=== PATIENT | male | born 1985 | race Caucasian/White ===

== ENCOUNTER → 2016-05-15 | Outpatient (CLI) | payer OTHER ==
[~2016-05-15] MED LIST: ATR10 PO; CETI10TA84 PO; CLON1TAB3 PO; FLUT0.15 NAE; HYDR-5688 PO; METO25TA3 PO; MISCCAP80 PO; MULT1CAP17 PO; NZRCR TOP; ONDA4TAB10 SL; PARO10TA3 PO
--- NOTE | 2016-05-15 17:20 | DIAGNOSTIC IMAGING REPORT ---
ULTRASOUND RIGHT VENOUS DOPP LOWER EXT UNILAT CLINICAL HISTORY: Right leg pain and swelling COMPARISON STUDY: No previous studies for comparison. FINDINGS: Real-time and color flow Doppler imaging were performed. Flow was seen within the femoral, popliteal and calf veins with no intraluminal thrombus demonstrated. The saphenous vein is patent. IMPRESSION: No evidence of right lower extremity DVT. Electronically signed by: Herman Cain M.D. 05/15/2016 5:19 PM Dictated Date/Time: 05/15/2016 5:18 PM
== END | disposition home or self-care (01) ==
LOC: C.ULTR 16:57
PROVIDERS: ATTEND Family Medicine
DX: J06.9 Acute upper respiratory infection, unspecified (principal); M79.604 Pain in right leg

== ENCOUNTER → 2016-05-23 | Outpatient (CLI) | payer OTHER ==
--- NOTE | 2016-05-23 14:04 | DIAGNOSTIC IMAGING REPORT ---
THYROID ULTRASONOGRAPHY CLINICAL HISTORY: Thyroid nodule COMPARISON STUDY: No previous studies for comparison. FINDINGS: The right lobe measures 19 x 59 x 26 mm. The left lobe measures 16 x 47 x 18 mm. There is a 22 x 21 x 17 mm right lobe nodule which is predominantly cystic but contains a mural nodule. Incidental note is made of several lymph nodes within the left neck, the largest of which measures 21 by size 7 x 7 mm. These are statistically reactive. IMPRESSION: 22 x 21 x 17 mm right lobe thyroid nodule which is predominantly cystic but contains a mural nodule. This meets size and morphologic characteristics for biopsy recommendation. Electronically signed by: Herman Cain M.D. 05/23/2016 2:02 PM Dictated Date/Time: 05/23/2016 1:59 PM
== END | disposition home or self-care (01) ==
LOC: C.ULTR 13:08
PROVIDERS: ATTEND Family Medicine
DX: E04.1 Nontoxic single thyroid nodule (principal); F41.9 Anxiety disorder, unspecified

== ENCOUNTER → 2016-05-30 | Outpatient (CLI) | payer OTHER ==
--- NOTE | 2016-05-30 11:48 | Discharge Instructions ---
Discharge Instructions Procedure Procedure Date: May 30, 2016. Reason for visit: Ct Showing Thyroid Nodule. Discharge Discharge Date: May 30, 2016. Discharge Diagnosis: s/p right lobe thyroid nodule FNA Instructions Activity Recommendations: No limitations Return to School/Work: no limitations Recommended Home Diet: No Limitations Provider Instructions: ACTIVITY RECOMMENDATIONS: * Rest today. * Resume regular activity in one day. MEDICATIONS: * May take Tylenol or Ibuprofen as needed for pain. DIET: * Resume previous diet. SPECIAL CARE INSTRUCTIONS: Call your doctor if: * Temperature above 101 degrees F. * Pain not relieved by pain medicine ordered. * Increased drainage or redness from incision. * Notify your doctor with any questions or concerns. Call your doctor or go to the nearest Emergency Department if you experience: * Increased chest pain or shortness of breath. FOLLOW UP VISIT: Follow-up with Referring Physician as scheduled. Allergies Coded Allergies: Chlorpheniramine (Unverified Allergy, Severe, anxiety, 04/09/16) Phenylpropanolamine (Unverified Allergy, Severe, anxiety, 04/09/16) Acarides (Mites) (Verified Allergy, Intermediate, "congestion", 04/09/16) Cat Dander (Verified Allergy, Intermediate, "congestion", 04/09/16) Dog Dander (Verified Allergy, Intermediate, "congestion", 04/09/16) Dust (Verified Allergy, Intermediate, "congestion", 04/09/16) Horse Dander (Verified Allergy, Intermediate, "congestion", 04/09/16) Sulfa Antibiotics (Verified Allergy, Unknown, HIVES, 04/09/16) [place] Recommendations: Call your doctor if: * Temperature above 101 degrees * Pain not relieved by pain medicine ordered * There is increased drainage or redness from any incision * You have any unanswered questions or concerns. Your Doctors Instructions noted above were prepared by provider Lakhwinder Herron. Patient Signature Section: Patient Instructions Signature Page Parveen Jackson Patient (or Guardian) Signature/Date: I have read and understand the instructions given to me by my caregivers. Caregiver/RN/Doctor Signature/Date: The above-named patient and/or guardian has received patient instructions on this date. + Original Patient Signature Page (only) stays with chart. Please make copy for patient.
--- NOTE | 2016-05-30 12:14 | DIAGNOSTIC IMAGING REPORT ---
ULTRASOUND GUIDED FINE NEEDLE ASPIRATION OF RIGHT LOBE THYROID NODULE CLINICAL HISTORY: Thyroid nodule. COMPARISON STUDY: Thyroid ultrasound May 23, 2016. PROCEDURE: Sonography of the thyroid gland demonstrated the 2.2 cm right lobe thyroid nodule. This nodule is predominantly cystic with a small mural nodule. This was targeted for fine needle aspiration. The procedure, risks and benefits were discussed with the patient. The patient agreed to the procedure and informed written consent was obtained. The procedure was performed by Dr. Herron following a timeout. Skin of the right neck was prepped and draped in sterile fashion and local anesthesia was achieved with 1% lidocaine. Under direct ultrasound guidance, 3 25-gauge fine needle aspirations of the nodule were performed. The mural nodule was targeted. The patient tolerated the procedure well and no immediate complications were evident. IMPRESSION: Ultrasound guided fine needle aspiration of right lobe thyroid nodule. Electronically signed by: Lakhwinder Herron M.D. 05/30/2016 12:12 PM Dictated Date/Time: 05/30/2016 12:11 PM
== END | disposition home or self-care (01) ==
LOC: C.ULTR 10:35
PROVIDERS: ATTEND Family Medicine
DX: E04.1 Nontoxic single thyroid nodule (principal)

== ENCOUNTER 2016-06-15 11:21 | Emergency (ER) | payer OTHER ==
[~2016-06-15] VITALS: Ht 167.6 cm; Wt 79.3 kg
[~2016-06-15 11:21] MED LIST changes: -ATR10 PO; -HYDR-5688 PO; -METO25TA3 PO; -MULT1CAP17 PO; -NZRCR TOP
[2016-06-15 11:24] VITALS: TEMP 36.5; Ht 167.6 cm; Wt 79.3 kg
[2016-06-15] MEDS ORDERED: MULT1CAP17 PO (11:52)
[2016-06-15] MEDS ORDERED: NZRCR TOP (11:52)
[2016-06-15] MEDS ORDERED: KETOROLAC TROMETHAMINE 30 MG/ML VIAL IV STA (12:00)
[2016-06-15] MEDS ORDERED: SODIUM CHLORIDE 0.9% 1000ML 1,000 ML IV STA (12:00)
[2016-06-15] MEDS ORDERED: ONDANSETRON INJ 2 MG/ML 2 ML VIAL IV STA (12:00)
--- NOTE | 2016-06-15 12:01 | EMERGENCY ROOM VISIT NOTE ---
History Report prepared by Marcelo: Ludivina Gomez Under the Supervision of: Dr. London Batista M.D. First contact with patient: 11:38 Chief Complaint: ABDOMINAL PAIN Stated Complaint: ABD. BLOATING, GURGLING, WON'T STOP History of Present Illness The patient is a 31 year old male who presents to the Emergency Room with complaints of intermittent pelvic and lower abdominal pain for the past few days. He is accompanied by his Father. He rates his discomfort as a 3/10. He reports approximately 12 days ago, he experienced URI type symptoms and was placed on Amoxicillin. He just finished the Amoxicillin course and also notes he has been using a cream on a fungal type rash on his buttocks. He was taking probiotic pills while taking the Amoxicillin. He reports a few days ago he started experiencing abdominal bloating and a feeling of "constant gurgling" in his stomach, which did not stop for "30 hours". The patient admits to a history of IBS, for which he follows with Dr. Peralta of [facility]. He still has both his appendix and gallbladder. He has also experienced night sweats and states he wakes up "soaking with sweat". The patient does have a history of panic disorder and reports some of his psychiatric medications have been readjusted recently. He also stopped smoking marijuana, which he states he had been doing habitually until recently. Source of History: patient Onset: past few days Position: abdomen Symptom Intensity: 3/10 Timing: intermittent Associated Symptoms: + diaphoresis Review of Systems See HPI for pertinent positives & negatives. A total of 10 systems reviewed and were otherwise negative. Past Medical & Surgical Medical Problems: (1) Acute sinusitis (2) Anxiety (3) Neck pain (4) Panic disorder (5) Seasonal allergies Family History Cancer FH: heart disease FH: pulmonary embolism Social History Smoking Status: Never Smoker Alcohol Use: occasionally Marital Status: single Housing Status: lives with family Occupation Status: employed Current/Historical Medications Scheduled Ketoconazole (Ketoconazole), 1 DOSE TOP BID Multiple Vitamins W/ Minerals (Multi For Him), 1 CAP PO DAILY Ondasetron Odt (Zofran Odt), 4 MG SL Q6H Paroxetine HCl (Paroxetine), 10 MG PO HS Probiotic Product (Probiotic), 1 CAP PO QPM Scheduled PRN Clonazepam (Klonopin), 0.5 MG PO BID PRN for Anxiety Fluticasone Propionate (Nasal) (Flonase Allergy Relief), 1 INHALER NA DAILY PRN for Nasal Congestion Allergies Coded Allergies: Chlorpheniramine (Unverified Allergy, Severe, anxiety, 06/15/16) Phenylpropanolamine (Unverified Allergy, Severe, anxiety, 06/15/16) Acarides (Mites) (Verified Allergy, Intermediate, "congestion", 06/15/16) Cat Dander (Verified Allergy, Intermediate, "congestion", 06/15/16) Dog Dander (Verified Allergy, Intermediate, "congestion", 06/15/16) Dust (Verified Allergy, Intermediate, "congestion", 06/15/16) Horse Dander (Verified Allergy, Intermediate, "congestion", 06/15/16) Sulfa Antibiotics (Verified Allergy, Unknown, HIVES, 06/15/16) Physical Exam Vital Signs Date Time Temp Pulse Resp B/P Pulse Ox O2 Delivery O2 Flow Rate FiO2 06/15/16 13:55 112 18 133/93 98 06/15/16 13:10 81 18 145/88 97 Room Air 06/15/16 11:24 36.5 104 18 145/95 94 Room Air Physical Exam GENERAL: Patient is a healthy-appearing well-nourished HEAD: Normocephalic atraumatic EYES: Ocular movements intact pupils equal and react to light OROPHARYNX mucous membranes are moist no exudates present no erythema or edema present NECK: Supple no nuchal rigidity CHEST: Good equal expansion LUNGS: Clear and equal to auscultation CARDIAC: Normal S1 and S2 ABDOMEN: Soft nontender no guarding BACK: No CVA tenderness EXTREMITIES: No pain upon palpation normal muscle strength in all groups no clubbing cyanosis or edema NEURO: Patient is following commands is answering questions appropriately. Alert and oriented x3 Cranial Nerves 2-12 grossly intact Medical Decision & Procedures ER Provider Diagnostic Interpretation: This X-Ray was reviewed and interpreted by myself and the radiologist. PA CHEST WITH ABDOMINAL SERIES IMPRESSION: 1. No active disease in the chest. 2. Unremarkable abdominal radiographs. Electronically signed by: Tony Mireles M.D. 06/15/2016 1:09 PM Laboratory Results 06/15/16 11:40 Red Blood Count 5.15, Mean Corpuscular Volume 85.0, Mean Corpuscular Hemoglobin 30.9, Mean Corpuscular Hemoglobin Concent 36.3, Mean Platelet Volume 10.1, Neutrophils (%) (Auto) 53.2, Lymphocytes (%) (Auto) 36.3, Monocytes (%) (Auto) 7.4, Eosinophils (%) (Auto) 2.7, Basophils (%) (Auto) 0.3, Neutrophils # (Auto) 3.95, Lymphocytes # (Auto) 2.70, Monocytes # (Auto) 0.55, Eosinophils # (Auto) 0.20, Basophils # (Auto) 0.02 06/15/16 11:40 Test 06/15/16 11:40 06/15/16 12:20 White Blood Count 7.43 K/uL (4.8-10.8) Red Blood Count 5.15 M/uL (4.7-6.1) Hemoglobin 15.9 g/dL (14.0-18.0) Hematocrit 43.8 % (42-52) Mean Corpuscular Volume 85.0 fL (80-100) Mean Corpuscular Hemoglobin 30.9 pg (25-34) Mean Corpuscular Hemoglobin Concent 36.3 g/dl (32-36) Platelet Count 257 K/uL (130-400) Mean Platelet Volume 10.1 fL (7.4-10.4) Neutrophils (%) (Auto) 53.2 % Lymphocytes (%) (Auto) 36.3 % Monocytes (%) (Auto) 7.4 % Eosinophils (%) (Auto) 2.7 % Basophils (%) (Auto) 0.3 % Neutrophils # (Auto) 3.95 K/uL (1.4-6.5) Lymphocytes # (Auto) 2.70 K/uL (1.2-3.4) Monocytes # (Auto) 0.55 K/uL (0.11-0.59) Eosinophils # (Auto) 0.20 K/uL (0-0.5) Basophils # (Auto) 0.02 K/uL (0-0.2) RDW Standard Deviation 40.5 fL (36.4-46.3) RDW Coefficient of Variation 13.0 % (11.5-14.5) Immature Granulocyte % (Auto) 0.1 % Immature Granulocyte # (Auto) 0.01 K/uL (0.00-0.02) Anion Gap 8.0 mmol/L (3-11) Est Creatinine Clear Calc Drug Dose 107.9 ml/min Estimated GFR () 117.4 Estimated GFR (Non- 101.3 BUN/Creatinine Ratio 11.2 (10-20) Calcium Level 9.0 mg/dl (8.5-10.1) Total Bilirubin 0.6 mg/dl (0.2-1) Direct Bilirubin 0.1 mg/dl (0-0.2) Aspartate Amino Transf (AST/SGOT) 16 U/L (15-37) Alanine Aminotransferase (ALT/SGPT) 22 U/L (12-78) Alkaline Phosphatase 81 U/L (45-117) Total Protein 8.0 gm/dl (6.4-8.2) Albumin 4.6 gm/dl (3.4-5.0) Lipase 134 U/L (73-393) Urine Color YELLOW Urine Appearance CLEAR (CLEAR) Urine pH 6.0 (4.5-7.5) Urine Specific [place] 1.009 (1.000-1.030) Urine Protein NEG (NEG) Urine Glucose (UA) NEG (NEG) Urine Ketones NEG (NEG) Urine Occult Blood NEG (NEG) Urine Nitrite NEG (NEG) Urine Bilirubin NEG (NEG) Urine Urobilinogen NEG (NEG) Urine Leukocyte Esterase NEG (NEG) Date/Time Source Procedure Growth Status 06/15/16 12:20 Stool C.difficile Toxin B Gene (PCR) - Final Complete Labs reviewed by ED physician. Medications Administered Medications (Trade) Dose Ordered Sig/Alejandra Route Start Time Stop Time Status Last Admin Dose Admin Ondansetron HCl 4 mg 4 mg NOW STAT IV 06/15/16 12:00 06/15/16 12:04 DC 06/15/16 12:16 4 MG Sodium Chloride (Nss 1000ml) 1,000 ml @ 999 mls/hr Q1H1M STAT IV 06/15/16 12:00 06/15/16 13:00 DC 06/15/16 12:16 999 MLS/HR ED Course 1152: Past medical records reviewed. The patient was evaluated in room B3. A complete history and physical examination was performed. 1200: NSS 1000 ml @ 999 mls/hr IV, Zofran 4 mg IV. 1311: Nursing informed me the patient is experiencing RUQ abdominal pain. 1335: I reevaluated the patient. He is feeling better but states he is concerned about his blood pressure. I discussed his results, discharge instructions and the importance of following up with his primary care physician and he verbalized complete understanding and agreement. Medical Decision Prior records/ancillary studies reviewed. Triage Nursing notes reviewed.. The patient's history was concerning for abdominal pain. Differential diagnosis: Etiologies such as appendicitis, diverticulitis, PUD, biliary pathology, UTI, pancreatitis, obstruction, mesenteric ischemia, aortic pathology, infections, inflammatory bowel disease, renal colic, as well as others were entertained. This is a 31-year-old male who presents emergency Department with vague abdominal complaints. The patient appears anxious on examination. Serial abdominal examinations were performed on the patient in the emergency department no time did the patient exhibited a surgical abdomen. In addition the patient has a normal lipase, normal CBC normal renal profile. He does have a large amount of stool throughout his colon on x-ray. An IV was established, patient given normal saline bolus, Zofran. Repeat examination revealed improvement the patient's symptoms. I do believe this patient is well enough to be discharged home for follow-up with his primary care physician. Patient and family were in agreement with the treatment plan. Impression Primary Impression: Abdominal pain Scribe Attestation The scribe's documentation has been prepared under my direction and personally reviewed by me in its entirety. I confirm that the note above accurately reflects all work, treatment, procedures, and medical decision making performed by me. Departure Information Dispostion Home / Self-Care Referrals Rosales Martini M.D. (PCP) Patient Instructions ED Abd Pain Unkn Cause Male, ED Hypertension Poss, My [facility] Additional Instructions Add 10 oz to 16 oz Gatorade and drink contiunuously over next 48 hours You have been examined and treated today on an emergency basis only. This is not a substitute for, or an effort to provide, complete comprehensive medical care. It is impossible to recognize and treat all injuries or illnesses in a single emergency department visit. It is therefore important that you follow up closely with Dr Martini. Call as soon as possible for an appointment. Thank you for your time and consideration. I look forward to speaking with you again soon. Please don't hesitate to call us if you have any questions. Problem Qualifiers Primary Impression: Abdominal pain Abdominal location: generalized Qualified Codes: R10.84 - Generalized abdominal pain
[2016-06-15 12:10] LABS: BASO % 0.3 %; BASO ABS # 0.02 K/uL (0-0.2); COMPLETE YES; EOS % 2.7 %; HEMATOCRIT 43.8 % (42-52); IG% 0.1 %; LYMPH % 36.3 %; MEAN CORPUSCULAR HEMOGLOBIN 30.9 pg (25-34); MEAN CORPUSCULAR HGB CONC 36.3 g/dl (32-36); MEAN PLATELET VOLUME 10.1 fL (7.4-10.4); MONO % 7.4 %; NEUT % 53.2 %; PLATELET COUNT 257 K/uL (130-400); RED BLOOD COUNT 5.15 M/uL (4.7-6.1); WHITE BLOOD COUNT 7.43 K/uL (4.8-10.8)
[2016-06-15 12:22] LABS: BUN/CREATININE RATIO 11.2 (10-20); POTASSIUM 3.9 mmol/L (3.5-5.1)
[2016-06-15 12:32] LABS: URINE APPEARANCE CLEAR (CLEAR); URINE BILIRUBIN NEG (NEG); URINE COLOR YELLOW; URINE NITRITE NEG (NEG); URINE SPECIFIC GRAVITY 1.009 (1.000-1.030); UROBILINOGEN NEG (NEG)
[2016-06-15 12:33] LABS: MANUAL MICROSCOPIC REQUIRED? NO; REVIEW REQ? NO
--- NOTE | 2016-06-15 13:11 | DIAGNOSTIC IMAGING REPORT ---
PA CHEST WITH ABDOMINAL SERIES CLINICAL HISTORY: Generalized abdominal pain. FINDINGS: A PA chest radiograph is compared to chest x-ray and chest CT dated 01/25/2016. The cardiomediastinal silhouette is unremarkable. The lungs and pleural spaces are clear. No pneumothorax is seen. The bony thorax is grossly intact. Supine and erect abdominal radiograph are correlated with abdominal CT dated 04/09/2016. There is a nonobstructed abdominal bowel gas pattern. Mild colonic fecal retention is noted. No evidence of intraperitoneal free air is seen. There is no radiographic evidence of nephrolithiasis. Large phleboliths in the left hemipelvis are unchanged. The lumbosacral spine and bony pelvis appear intact. IMPRESSION: 1. No active disease in the chest. 2. Unremarkable abdominal radiographs. Electronically signed by: Tony Mireles M.D. 06/15/2016 1:09 PM Dictated Date/Time: 06/15/2016 1:07 PM
[2016-06-15 13:55] VITALS: BP 133/93; PULSE 112; O2SAT 98
[2016-11-08] MEDS ORDERED: HYDR-5688 PO (07:02)
== END 2016-06-15 13:56 | disposition home or self-care (01) ==
LOC: C.EDB 11:22
DX: R10.84 Generalized abdominal pain (principal); K58.9 Irritable bowel syndrome, unspecified; R61 Generalized hyperhidrosis; F41.0 Panic disorder [episodic paroxysmal anxiety]; Z79.899 Other long term (current) drug therapy; Z88.1 Allergy status to other antibiotic agents; Z88.2 Allergy status to sulfonamides; Z88.8 Allergy status to other drugs, medicaments and biological substances; Z82.49 Family history of ischemic heart disease and other diseases of the circulatory system

== ENCOUNTER 2016-07-08 14:52 | Emergency (ER) | payer OTHER ==
[~2016-07-08] VITALS: Ht 172.7 cm; Wt 84.7 kg
[~2016-07-08 14:52] MED LIST changes: -CETI10TA84 PO; +MULT1CAP17 PO; +NZRCR TOP
[2016-07-08 14:57] VITALS: TEMP 37; Ht 172.7 cm; Wt 84.7 kg
[2016-07-08] MEDS ORDERED: SODIUM CHLORIDE 0.9% 1000ML 2,000 ML IV STA (15:03)
[2016-07-08 15:17] LABS: HEMATOCRIT 42.6 % (42-52); MEAN CELL VOLUME 84.5 fL (80-100); MEAN CORPUSCULAR HEMOGLOBIN 30.6 pg (25-34); MEAN CORPUSCULAR HGB CONC 36.2 g/dl (32-36); MEAN PLATELET VOLUME 10.2 fL (7.4-10.4); PLATELET COUNT 241 K/uL (130-400); RED BLOOD COUNT 5.04 M/uL (4.7-6.1); WHITE BLOOD COUNT 8.06 K/uL (4.8-10.8)
--- NOTE | 2016-07-08 15:26 | DIAGNOSTIC IMAGING REPORT ---
CHEST ONE VIEW PORTABLE CLINICAL HISTORY: Shortness of breath COMPARISON STUDY: 06/15/2016 FINDINGS: The cardiac and mediastinal contours are normal. There is no evidence of focal pulmonary consolidation. There is no evidence of failure. No pleural effusions are visualized.[ IMPRESSION: No active disease in the chest. Electronically signed by: Herman Cain M.D. 07/08/2016 3:24 PM Dictated Date/Time: 07/08/2016 3:24 PM
[2016-07-08 15:40] LABS: BLOOD UREA NITROGEN 16 mg/dl (7-18); BUN/CREATININE RATIO 13.2 (10-20); CALCIUM 9.8 mg/dl (8.5-10.1); CARBON DIOXIDE 21 mmol/L (21-32); CHLORIDE 104 mmol/L (98-107); GLUCOSE 149 mg/dl (70-99); POTASSIUM 3.4 mmol/L (3.5-5.1); SODIUM 138 mmol/L (136-145)
--- NOTE | 2016-07-08 15:47 | EMERGENCY ROOM VISIT NOTE ---
History Report prepared by Marcelo: Rashmi Cramer Under the Supervision of: Dr. Pelon Roca M.D. 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 He came to the ED via ambulance from home. He was given 1 mg of Ativan IV by EMS prior to arrival. EMS reports that the patient was tachypneic upon their arrival. The patient states that his daughter was born yesterday, but he has been in the hospital all weekend. He states that due to the anticipation of his daughter's along with starting a new job, he has been more anxious than usual for the past 3 days. The patient started his new job today. He adds that he hasn't slept much over the past 2 days either, so he is fatigued. The patient is also experiencing rhinorrhea and post-nasal drip, but he states that he usually experiences those symptoms with seasonal allergies. Additionally, he states that he experienced diarrhea this morning. He denies cough and any urinary symptoms. The patient states that the only medication that he takes daily is 0.5 mg of Klonopin, which is normal for him. 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 A total of 10 systems reviewed and were otherwise negative. Past Medical & Surgical Medical Problems: (1) Acute sinusitis (2) Anxiety (3) Neck pain (4) Panic disorder (5) Seasonal allergies Family History Cancer FH: heart disease FH: pulmonary embolism Social History Smoking Status: Never Smoker Alcohol Use: occasionally Marital Status: single Housing Status: lives with family Occupation Status: employed Current/Historical Medications Scheduled Multiple Vitamins W/ Minerals (Multi For Him), 1 CAP PO DAILY Paroxetine HCl (Paroxetine), 10 MG PO HS Probiotic Product (Probiotic), 1 CAP PO QPM Scheduled PRN Clonazepam (Klonopin), 0.5 MG PO BID PRN for Anxiety Fluticasone Propionate (Nasal) (Flonase Allergy Relief), 1 INHALER NA DAILY PRN for Nasal Congestion Ondasetron Odt (Zofran Odt), 4 MG SL Q6H PRN for Nausea Allergies Coded Allergies: Chlorpheniramine (Unverified Allergy, Severe, anxiety, 07/08/16) Phenylpropanolamine (Unverified Allergy, Severe, anxiety, 07/08/16) Acarides (Mites) (Verified Allergy, Intermediate, "congestion", 07/08/16) Cat Dander (Verified Allergy, Intermediate, "congestion", 07/08/16) Dog Dander (Verified Allergy, Intermediate, "congestion", 07/08/16) Dust (Verified Allergy, Intermediate, "congestion", 07/08/16) Horse Dander (Verified Allergy, Intermediate, "congestion", 07/08/16) Sulfa Antibiotics (Verified Allergy, Unknown, HIVES, 07/08/16) Physical Exam Vital Signs Date Time Temp Pulse Resp B/P Pulse Ox O2 Delivery O2 Flow Rate FiO2 07/08/16 15:51 97 18 148/88 97 Room Air 07/08/16 15:07 105 07/08/16 14:57 37.0 96 20 148/97 98 Room Air 07/08/16 14:57 97 Room Air Physical Exam GENERAL: Patient is anxious appearing and in no acute distress. HEENT: No acute trauma, normocephalic atraumatic, mucous membranes moist, no nasal congestion, no scleral icterus. NECK: No stridor, no adenopathy, no meningismus, trachea is midline. LUNGS: No dyspnea. Clear to auscultation and equal bilaterally. No wheeze, no rhonchi. HEART: Mildly tachycardic rate and regular rhythm. No murmurs, rubs, gallops appreciated. ABDOMEN: Soft, nontender, bowel sounds positive, no masses appreciated, no peritonitis. BACK: No midline tenderness, no CVA tenderness EXTREMITIES: Normal motion all extremities, no cyanosis, no edema. NEUROLOGIC: Alert and oriented, no acute motor or sensory deficits, no focal weakness, cranial nerves grossly intact. SKIN: No rash, no jaundice, no diaphoresis. Medical Decision & Procedures ER Provider Diagnostic Interpretation: X ray results are stated below per my interpretation and the radiologist's interpretation. CHEST ONE VIEW PORTABLE IMPRESSION: No active disease in the chest. Electronically signed by: Herman Cain M.D. 07/08/2016 3:24 PM Dictated Date/Time: 07/08/2016 3:24 PM Laboratory Results 07/08/16 15:00 Red Blood Count 5.04, Mean Corpuscular Volume 84.5, Mean Corpuscular Hemoglobin 30.6, Mean Corpuscular Hemoglobin Concent 36.2, Mean Platelet Volume 10.2, Neutrophils (%) (Auto) 63.8, Lymphocytes (%) (Auto) 27.8, Monocytes (%) (Auto) 7.2, Eosinophils (%) (Auto) 0.6, Basophils (%) (Auto) 0.4, Neutrophils # (Auto) 5.14, Lymphocytes # (Auto) 2.24, Monocytes # (Auto) 0.58, Eosinophils # (Auto) 0.05, Basophils # (Auto) 0.03 07/08/16 15:00 Test 07/08/16 15:00 White Blood Count 8.06 K/uL (4.8-10.8) Red Blood Count 5.04 M/uL (4.7-6.1) Hemoglobin 15.4 g/dL (14.0-18.0) Hematocrit 42.6 % (42-52) Mean Corpuscular Volume 84.5 fL (80-100) Mean Corpuscular Hemoglobin 30.6 pg (25-34) Mean Corpuscular Hemoglobin Concent 36.2 g/dl (32-36) Platelet Count 241 K/uL (130-400) Mean Platelet Volume 10.2 fL (7.4-10.4) Neutrophils (%) (Auto) 63.8 % Lymphocytes (%) (Auto) 27.8 % Monocytes (%) (Auto) 7.2 % Eosinophils (%) (Auto) 0.6 % Basophils (%) (Auto) 0.4 % Neutrophils # (Auto) 5.14 K/uL (1.4-6.5) Lymphocytes # (Auto) 2.24 K/uL (1.2-3.4) Monocytes # (Auto) 0.58 K/uL (0.11-0.59) Eosinophils # (Auto) 0.05 K/uL (0-0.5) Basophils # (Auto) 0.03 K/uL (0-0.2) RDW Standard Deviation 40.5 fL (36.4-46.3) RDW Coefficient of Variation 13.4 % (11.5-14.5) Immature Granulocyte % (Auto) 0.2 % Immature Granulocyte # (Auto) 0.02 K/uL (0.00-0.02) Red Blood Cell Morphology Unremarkable D-Dimer 210 ug/L FEU (0-500) Anion Gap 13.0 mmol/L (3-11) Est Creatinine Clear Calc Drug Dose 96.2 ml/min Estimated GFR () 94.1 Estimated GFR (Non- 81.2 BUN/Creatinine Ratio 13.2 (10-20) Calcium Level 9.8 mg/dl (8.5-10.1) Troponin I < 0.015 ng/ml (0-0.045) Influenza Type A Antigen Neg for Influ A (NEG) Influenza Type B Antigen Neg for Influ B (NEG) Laboratory results as reviewed by me. Medications Administered Medications (Trade) Dose Ordered Sig/Alejandra Route Start Time Stop Time Status Last Admin Dose Admin Sodium Chloride (Nss 1000ml) 2,000 ml @ 999 mls/hr Q2H1M STAT IV 07/08/16 15:03 07/08/16 16:17 DC 07/08/16 15:03 999 MLS/HR ECG Indication: SOB/dyspnea Rate (beats per minute): 87 Rhythm: normal sinus Findings: no acute ischemic change, no ectopy ED Course 1500: The patient was evaluated in room B12. A complete history and physical exam was performed. 1503: Ordered Sodium Chloride 2000 ml @ 999 mls/hr IV 1549: Reevaluated the patient. His heart rate is in the 90s and he is breathing comfortably. A repeat lung exam was clear. Discussed results and discharge instructions: he verbalized understanding and agreement. The patient is ready for discharge. Medical Decision Differential: Infectious, Reactive Airway Disease, Pneumonia, Pneumothorax, COPD , CHF, ACS, Pulmonary Embolism, MSK, GI, Dissection, Anxiety, amongst other etiologies entertained. 31 yr old very anxious male who's significant other just had baby yesterday and started new stressful job today, arrives via ems following anxiety attack. Mild dehydration and clearly anxious though apparently much improved from EMS arrival due to Ativan. Looks well and otherwise in no distress. Periodic runny nose but states this is normal. Afebrile, CXR clear, no runny nose now. Mild tachy with low PE risk thus dimer done which was normal. EKG trop unremarkable. Labs unremarkable. Patient given IV fluids and feeling well. Discharge to home with plan to avoid baby is URI symptoms increase. For now Flu negative though discussed testing limitations. Impression Primary Impression: Anxiety Additional Impressions: Shortness of breath Dehydration Scribe Attestation The scribe's documentation has been prepared under my direction and personally reviewed by me in its entirety. I confirm that the note above accurately reflects all work, treatment, procedures, and medical decision making performed by me. Departure Information Dispostion Home / Self-Care Referrals Rosales Martini M.D. (PCP) Forms HOME CARE DOCUMENTATION FORM, IMPORTANT VISIT INFORMATION Patient Instructions My [facility], Shortness of Breath Control Stress Problem Qualifiers
[2016-07-08 15:51] VITALS: BP 148/88; PULSE 97; O2SAT 97
[2016-07-08 15:55] LABS: BASO % 0.4 %; BASO ABS # 0.03 K/uL (0-0.2); COMPLETE YES; EOS % 0.6 %; IG% 0.2 %; LYMPH % 27.8 %; LYMPH ABS # 2.24 K/uL (1.2-3.4); MONO % 7.2 %; NEUT % 63.8 %
[2016-07-08] MEDS ORDERED: ONDA4TAB10 SL (15:55)
[2016-07-09 06:59] LABS: HYPERSEGMENTED POLYS 1+
[2016-11-08] MEDS ORDERED: HYDR-5688 PO (07:02)
== END 2016-07-08 16:00 | disposition home or self-care (01) ==
LOC: EDBD 14:52 → C.EDB 14:54
DX: F41.9 Anxiety disorder, unspecified (principal); R06.02 Shortness of breath; E86.0 Dehydration; Z79.899 Other long term (current) drug therapy

== ENCOUNTER 2016-07-22 15:03 | Emergency (ER) | payer OTHER ==
[~2016-07-22] VITALS: Ht 167.6 cm; Wt 81.3 kg
[~2016-07-22 15:03] MED LIST changes: -NZRCR TOP
[2016-07-22 15:12] VITALS: TEMP 36.8; Ht 167.6 cm; Wt 81.3 kg
[2016-07-22 15:33] VITALS: O2SAT 96
--- NOTE | 2016-07-22 15:50 | DIAGNOSTIC IMAGING REPORT ---
CHEST ONE VIEW PORTABLE HISTORY: palpitations COMPARISON: Chest 07/08/2016. FINDINGS: The lungs are clear. Cardiac silhouette is normal in size. No pleural effusions. No pneumothorax. IMPRESSION: No acute process. Electronically signed by: Ryland Montoya M.D. 07/22/2016 3:47 PM Dictated Date/Time: 07/22/2016 3:47 PM
[2016-07-22 16:05] LABS: BASO % 0.3 %; BASO ABS # 0.03 K/uL (0-0.2); COMPLETE YES; EOS % 0.9 %; HEMATOCRIT 42.7 % (42-52); IG% 0.1 %; LYMPH % 27.2 %; LYMPH ABS # 2.56 K/uL (1.2-3.4); MEAN CELL VOLUME 87.3 fL (80-100); MEAN CORPUSCULAR HEMOGLOBIN 31.1 pg (25-34); MEAN CORPUSCULAR HGB CONC 35.6 g/dl (32-36); MEAN PLATELET VOLUME 10.1 fL (7.4-10.4); MONO % 5.4 %; NEUT % 66.1 %; PLATELET COUNT 223 K/uL (130-400); RED BLOOD COUNT 4.89 M/uL (4.7-6.1)
[2016-07-22] MEDS ORDERED: METO25TA3 PO (16:11)
[2016-07-22 16:30] LABS: ALT/SGPT 20 U/L (12-78); BLOOD UREA NITROGEN 14 mg/dl (7-18); BUN/CREATININE RATIO 13.8 (10-20); CALCIUM 9.3 mg/dl (8.5-10.1); CARBON DIOXIDE 24 mmol/L (21-32); CHLORIDE 105 mmol/L (98-107); CREATININE 0.99 mg/dl (0.60-1.40); GLUCOSE 94 mg/dl (70-99); POTASSIUM 3.6 mmol/L (3.5-5.1); SODIUM 139 mmol/L (136-145)
[2016-07-22 16:40] LABS: ALB/GLOB RATIO 1.3 (0.9-2); ALKALINE PHOSPHATASE 67 U/L (45-117); AST/SGOT 14 U/L (15-37)
--- NOTE | 2016-07-22 16:57 | EMERGENCY ROOM VISIT NOTE ---
History First contact with patient: 15:17 Chief Complaint: PALPITATIONS Stated Complaint: HEART PALPITATIONS, HEADACHE Nursing Triage Summary: Patient c/o of heart palpitations with strenous activities after lunch. "I was put on Metoprolol but I think it makes them worse." History of Present Illness The patient is a 31 year old male who presents to the Emergency Room with complaints of palpitations which are chronic for him but worsened today. The patient states that had a history of heart palpitations for several years. He wore a Holter monitor while in college and was told that he had frequent PVCs. He states that he has had an increase in symptoms recently, possibly due to anxiety as he recently had a child. He states that he saw his primary care provider 4 days ago and they started him on metoprolol. He does feel that this has been helping his symptoms up to today. He reports that today his palpitations increased after eating lunch. He states that his symptoms have been worse when he is performing strenuous activity. He does report that his symptoms have resolved at this time. He denies any chest pain, shortness of breath, nausea, vomiting, recent illness, fevers, headache or neck pain. Review of Systems A complete 10-point Review of Systems was discussed with the patient, with pertinent positives and negatives listed in the History of Present Illness. All remaining Review of Systems questions can be considered negative unless otherwise specified. Past Medical/Surgical History Medical Problems: (1) Acute sinusitis (2) Anxiety (3) Neck pain (4) Panic disorder (5) Seasonal allergies Family History Cancer FH: heart disease FH: pulmonary embolism Social History Smoking Status: Never Smoker Alcohol Use: occasionally Marital Status: single Housing Status: lives with family Occupation Status: employed Current/Historical Medications Scheduled Metoprolol Succ (Toprol Xl) (Toprol-Xl), 12.5 MG PO PM Multiple Vitamins W/ Minerals (Multi For Him), 1 CAP PO DAILY Paroxetine HCl (Paroxetine), 10 MG PO HS Probiotic Product (Probiotic), 1 CAP PO QPM Scheduled PRN Clonazepam (Klonopin), 0.5 MG PO TID PRN for Anxiety Fluticasone Propionate (Nasal) (Flonase Allergy Relief), 1 INHALER NA DAILY PRN for Nasal Congestion Allergies Coded Allergies: Chlorpheniramine (Unverified Allergy, Severe, anxiety, 07/08/16) Phenylpropanolamine (Unverified Allergy, Severe, anxiety, 07/08/16) Acarides (Mites) (Verified Allergy, Intermediate, "congestion", 07/08/16) Cat Dander (Verified Allergy, Intermediate, "congestion", 07/08/16) Dog Dander (Verified Allergy, Intermediate, "congestion", 07/08/16) Dust (Verified Allergy, Intermediate, "congestion", 07/08/16) Horse Dander (Verified Allergy, Intermediate, "congestion", 07/08/16) Sulfa Antibiotics (Verified Allergy, Unknown, HIVES, 07/08/16) Physical Exam Vital Signs Date Time Temp Pulse Resp B/P Pulse Ox O2 Delivery O2 Flow Rate FiO2 07/22/16 17:35 70 140/86 98 Room Air 07/22/16 16:01 83 16 133/86 97 Room Air 07/22/16 15:34 97 Room Air 07/22/16 15:33 96 Room Air 07/22/16 15:12 36.8 92 18 96 Room Air Physical Exam VITALS: Vitals are noted on the nurse's note and reviewed by myself. Vital signs stable. GENERAL: This is a 31-year-old male, in no acute distress, nondiaphoretic, well- developed well-nourished. SKIN: Capillary reflex less than 2 seconds. HEENT: Normocephalic. PERRLA. EOMI. Nares patent. Mucous membranes moist. Neck is supple without nuchal rigidity. HEART: Regular rate and rhythm without murmurs gallops or rubs. LUNGS: Clear to auscultation bilaterally without wheezes, rales or rhonchi. No retractions or accessory muscle use. ABDOMEN: Positive bowel sounds x 4. Soft, nontender to palpation. NEURO: Patient was alert and oriented to person place and time. Medical Decision & Procedures ER Provider Diagnostic Interpretation: CHEST ONE VIEW PORTABLE HISTORY: palpitations COMPARISON: Chest 07/08/2016. FINDINGS: The lungs are clear. Cardiac silhouette is normal in size. No pleural effusions. No pneumothorax. IMPRESSION: No acute process. Laboratory Results 07/22/16 15:52 Red Blood Count 4.89, Mean Corpuscular Volume 87.3, Mean Corpuscular Hemoglobin 31.1, Mean Corpuscular Hemoglobin Concent 35.6, Mean Platelet Volume 10.1, Neutrophils (%) (Auto) 66.1, Lymphocytes (%) (Auto) 27.2, Monocytes (%) (Auto) 5.4, Eosinophils (%) (Auto) 0.9, Basophils (%) (Auto) 0.3, Neutrophils # (Auto) 6.21, Lymphocytes # (Auto) 2.56, Monocytes # (Auto) 0.51, Eosinophils # (Auto) 0.08, Basophils # (Auto) 0.03 07/22/16 15:52 Test 07/22/16 15:52 White Blood Count 9.40 K/uL (4.8-10.8) Red Blood Count 4.89 M/uL (4.7-6.1) Hemoglobin 15.2 g/dL (14.0-18.0) Hematocrit 42.7 % (42-52) Mean Corpuscular Volume 87.3 fL (80-100) Mean Corpuscular Hemoglobin 31.1 pg (25-34) Mean Corpuscular Hemoglobin Concent 35.6 g/dl (32-36) Platelet Count 223 K/uL (130-400) Mean Platelet Volume 10.1 fL (7.4-10.4) Neutrophils (%) (Auto) 66.1 % Lymphocytes (%) (Auto) 27.2 % Monocytes (%) (Auto) 5.4 % Eosinophils (%) (Auto) 0.9 % Basophils (%) (Auto) 0.3 % Neutrophils # (Auto) 6.21 K/uL (1.4-6.5) Lymphocytes # (Auto) 2.56 K/uL (1.2-3.4) Monocytes # (Auto) 0.51 K/uL (0.11-0.59) Eosinophils # (Auto) 0.08 K/uL (0-0.5) Basophils # (Auto) 0.03 K/uL (0-0.2) RDW Standard Deviation 42.4 fL (36.4-46.3) RDW Coefficient of Variation 13.1 % (11.5-14.5) Immature Granulocyte % (Auto) 0.1 % Immature Granulocyte # (Auto) 0.01 K/uL (0.00-0.02) Anion Gap 10.0 mmol/L (3-11) Est Creatinine Clear Calc Drug Dose 110.2 ml/min Estimated GFR () 118.8 Estimated GFR (Non- 102.5 BUN/Creatinine Ratio 13.8 (10-20) Calcium Level 9.3 mg/dl (8.5-10.1) Total Bilirubin 0.3 mg/dl (0.2-1) Aspartate Amino Transf (AST/SGOT) 14 U/L (15-37) Alanine Aminotransferase (ALT/SGPT) 20 U/L (12-78) Alkaline Phosphatase 67 U/L (45-117) Troponin I < 0.015 ng/ml (0-0.045) Total Protein 7.5 gm/dl (6.4-8.2) Albumin 4.3 gm/dl (3.4-5.0) Globulin 3.2 gm/dl (2.5-4.0) Albumin/Globulin Ratio 1.3 (0.9-2) Thyroid Stimulating Hormone (TSH) 1.150 uIu/ml (0.300-4.500) ECG Rate (beats per minute): 87 Rhythm: normal sinus (sinus arrhythmia) Findings: no acute ischemic change, no ectopy Change: no significant change ED Course The patient was evaluated as above. Labs were drawn and IV access was obtained. The patient was placed on the monitoring engineer and monitored throughout the duration of his stay. Chest x-ray was performed and read by radiology as above. Patient was reevaluated and was still asymptomatic Discharge instructions were reviewed with the patient. The patient verbalized understanding of my assessment and treatment plan and was discharged home in good condition. Medical Decision Differential diagnosis includes arrhythmia, anxiety, pulmonary embolism, pneumothorax, acute coronary syndrome, among others. The patient is a 31-year-old male who presents today complaining of palpitations. Labs revealed no leukocytosis, anemia or concerning electrolyte abnormalities. Troponin was not elevated. EKG showed a normal sinus rhythm with sinus arrhythmia. No arrhythmias were seen on the monitoring engineer. The patient does appear to be very anxious regarding his symptoms and is constantly checking his pulse while in the room. He expressed concern that his heart rate increased with inspiration and I explained that sinus arrhythmia is very common and a normal variant. I feel that anxiety likely plays a large part in this patient's symptoms. I do feel that the patient should continue taking his metoprolol and follow up with his primary care provider and draughtsman for further evaluation of his symptoms. The patient was agreeable to this treatment plan. The patient's case was reviewed with Dr. Duffy, ED attending physician, who agreed with my assessment and treatment plan. Based on the patient's presentation and work up, I feel the patient is stable for outpatient treatment. The patient was educated to the emergency department for any worsening of their current condition or new/concerning symptoms. He will follow up with primary care and cardiology this week. Impression Primary Impression: Palpitations Departure Information Dispostion Home / Self-Care Condition GOOD Referrals Rosales Martini M.D. (PCP) Ashwin Santizo, DO Patient Instructions My [facility] Additional Instructions Follow-up with Dr. Martini tomorrow as scheduled. Rest and stay hydrated. You should follow-up with your established draughtsman within 2 days. No work tomorrow. Return to the emergency department with any worsening symptoms or new/ concerning symptoms.
[2016-07-22 17:35] VITALS: BP 140/86; PULSE 70; O2SAT 98
[2016-11-08] MEDS ORDERED: HYDR-5688 PO (07:02)
[2017-02-01] MEDS ORDERED: AMOX875T PO (18:20)
== END 2016-07-22 17:49 | disposition home or self-care (01) ==
LOC: C.EDB 15:04 → C.EDC 17:49
DX: R00.2 Palpitations (principal); Z82.49 Family history of ischemic heart disease and other diseases of the circulatory system

== ENCOUNTER 2016-10-24 15:46 | Emergency (ER) | payer OTHER ==
[~2016-10-24] VITALS: Ht 167.6 cm; Wt 83.0 kg
[~2016-10-24 15:46] MED LIST changes: +FLUT0.15; -FLUT0.15 NAE; +METO25TA3 PO; -ONDA4TAB10 SL
[2016-10-24 15:48] VITALS: TEMP 37; Ht 167.6 cm; Wt 83.0 kg
[2016-10-24 16:30] LABS: BASO % 0.4 %; BASO ABS # 0.04 K/uL (0-0.2); COMPLETE YES; EOS % 1.3 %; HEMATOCRIT 43.3 % (42-52); IG% 0.2 %; LYMPH ABS # 2.92 K/uL (1.2-3.4); MEAN CELL VOLUME 86.8 fL (80-100); MEAN CORPUSCULAR HEMOGLOBIN 31.3 pg (25-34); MEAN PLATELET VOLUME 9.6 fL (7.4-10.4); MONO % 6.4 %; NEUT % 61.7 %; PLATELET COUNT 247 K/uL (130-400); RED BLOOD COUNT 4.99 M/uL (4.7-6.1); WHITE BLOOD COUNT 9.74 K/uL (4.8-10.8)
[2016-10-24] MEDS ORDERED: ATR10 PO (16:42)
--- NOTE | 2016-10-24 16:52 | DIAGNOSTIC IMAGING REPORT ---
PA CHEST WITH ABDOMINAL SERIES CLINICAL HISTORY: Generalized abdominal pain. FINDINGS: A PA chest radiograph is compared to chest x-ray 07/22/2016 and correlated with chest CT dated 01/25/2016. The cardiomediastinal silhouette is unremarkable. The lungs and pleural spaces are clear. No pneumothorax is seen. The bony thorax is grossly intact. Supine and erect abdominal radiographs are compared to study dated 06/15/2016 and correlated with abdominal CT dated 04/09/2016. There is a nonobstructed abdominal bowel gas pattern. Mild colonic fecal retention is noted. No evidence of intraperitoneal free air is seen. There is no radiographic evidence of nephrolithiasis. Large phleboliths in the left hemipelvis are unchanged. The lumbosacral spine and bony pelvis appear intact. IMPRESSION: 1. No active disease in the chest. 2. Unremarkable abdominal radiographs. Electronically signed by: Tony Mireles M.D. 10/24/2016 4:51 PM Dictated Date/Time: 10/24/2016 4:50 PM
[2016-10-24 16:56] LABS: BUN/CREATININE RATIO 10.4 (10-20); CALCIUM 9.2 mg/dl (8.5-10.1); CREATININE 1.2 mg/dl (0.60-1.40); POTASSIUM 3.8 mmol/L (3.5-5.1)
[2016-10-24 17:01] VITALS: BP 138/74; PULSE 70; O2SAT 98
[2016-10-24 17:07] LABS: THYROID STIMULATING HORMONE 0.443 uIu/ml (0.300-4.500)
--- NOTE | 2016-10-24 19:27 | EMERGENCY ROOM VISIT NOTE ---
History Report prepared by Marcelo: Danna Cabrera Under the Supervision of: Dr. Yosvany Avila M.D. First contact with patient: 15:53 Chief Complaint: ABDOMINAL PAIN Stated Complaint: PAIN, LUMP AROUND BELLY BUTTON,HEART PALPITATIONS History of Present Illness The patient is a 31 year old male who presents to the Emergency Room with complaints of waxing and waning abdominal pain starting 2 months ago. He also states that today at work he could feel a lump around his belly button. His abdominal pain is exacerbated with work and lifting. The patient also complains of some dizziness, shortness of breath, and chest pain described as muscular tightness. He attributes these symptoms to the hydroxyzine he was recently started for his palpitations. He states that he takes probiotics but still has small stools. He reports that he had knee surgery so his left knee is always in pain. He otherwise denies any leg pain or swelling. He denies vomiting, fevers , and urinary symptoms. Source of History: patient Onset: 2 months ago Position: abdomen Timing: waxes/wanes Modifying Factors (Worsening): movement (work and lifting) Associated Symptoms: + chest pain, + SOB, No fevers, No vomiting, No urinary symptoms Note: additional symptoms: dizziness Review of Systems See HPI for pertinent positives & negatives. A total of 10 systems reviewed and were otherwise negative. Past Medical & Surgical Medical Problems: (1) Acute sinusitis (2) Anxiety (3) Neck pain (4) Panic disorder (5) Seasonal allergies Family History Cancer FH: heart disease FH: pulmonary embolism Social History Smoking Status: Former Smoker Alcohol Use: occasionally Marital Status: single Housing Status: lives with family Occupation Status: employed Current/Historical Medications Scheduled Hydroxyzine HCl (Hydroxyzine HCl), 10 MG PO HS Metoprolol Succ (Toprol Xl) (Toprol-Xl), 12.5 MG PO PM Paroxetine HCl (Paroxetine), 10 MG PO HS Probiotic Product (Probiotic), 1 CAP PO QPM Scheduled PRN Clonazepam (Klonopin), 0.5 MG PO TID PRN for Anxiety Fluticasone Propionate (Nasal) (Flonase Allergy Relief), 1 INHALER NA DAILY PRN for Nasal Congestion Allergies Coded Allergies: Chlorpheniramine (Unverified Allergy, Severe, anxiety, 07/08/16) Phenylpropanolamine (Unverified Allergy, Severe, anxiety, 07/08/16) Acarides (Mites) (Verified Allergy, Intermediate, "congestion", 07/08/16) Cat Dander (Verified Allergy, Intermediate, "congestion", 07/08/16) Dog Dander (Verified Allergy, Intermediate, "congestion", 07/08/16) Dust (Verified Allergy, Intermediate, "congestion", 07/08/16) Horse Dander (Verified Allergy, Intermediate, "congestion", 07/08/16) Sulfa Antibiotics (Verified Allergy, Unknown, HIVES, 07/08/16) Physical Exam Vital Signs Date Time Temp Pulse Resp B/P (MAP) Pulse Ox O2 Delivery O2 Flow Rate FiO2 10/24/16 17:01 70 15 138/74 98 Room Air 10/24/16 16:08 114 10/24/16 15:48 37.0 92 18 152/91 96 Room Air Physical Exam Constitutional: Vital signs reviewed. Eyes: Pupils are equal round reactive to light. Conjunctiva are noninjected. ENT: Pharynx is clear without erythema or exudate. Mucous membranes are moist. Neck supple without meningeal signs. Respiratory: Clear to auscultation bilaterally. Breath sounds are equal bilaterally. Cardiovascular: Regular rate and rhythm. No rubs or gallops. GI: Soft, nondistended and nontender. Bowel sounds are present. Tiny umbilical hernia easily reducible without tenderness. Musculoskeletal: No peripheral edema. No lower extremity tenderness. Integumentary: No cyanosis. Neurological: The patient is awake and alert. No focal deficits. Psychiatric: Anxious. Medical Decision & Procedures ER Provider Diagnostic Interpretation: X-ray results as stated below per interpretation by me and the radiologist: PA CHEST WITH ABDOMINAL SERIES CLINICAL HISTORY: Generalized abdominal pain. FINDINGS: A PA chest radiograph is compared to chest x-ray 07/22/2016 and correlated with chest CT dated 01/25/2016. The cardiomediastinal silhouette is unremarkable. The lungs and pleural spaces are clear. No pneumothorax is seen. The bony thorax is grossly intact. Supine and erect abdominal radiographs are compared to study dated 06/15/2016 and correlated with abdominal CT dated 04/09/2016. There is a nonobstructed abdominal bowel gas pattern. Mild colonic fecal retention is noted. No evidence of intraperitoneal free air is seen. There is no radiographic evidence of nephrolithiasis. Large phleboliths in the left hemipelvis are unchanged. The lumbosacral spine and bony pelvis appear intact. IMPRESSION: 1. No active disease in the chest. 2. Unremarkable abdominal radiographs. Electronically signed by: Tony Mireles M.D. 10/24/2016 4:51 PM Dictated Date/Time: 10/24/2016 4:50 PM Laboratory Results 10/24/16 16:15 Red Blood Count 4.99, Mean Corpuscular Volume 86.8, Mean Corpuscular Hemoglobin 31.3, Mean Corpuscular Hemoglobin Concent 36.0, Mean Platelet Volume 9.6, Neutrophils (%) (Auto) 61.7, Lymphocytes (%) (Auto) 30.0, Monocytes (%) (Auto) 6.4, Eosinophils (%) (Auto) 1.3, Basophils (%) (Auto) 0.4, Neutrophils # (Auto) 6.01, Lymphocytes # (Auto) 2.92, Monocytes # (Auto) 0.62, Eosinophils # (Auto) 0.13, Basophils # (Auto) 0.04 10/24/16 16:15 Test 10/24/16 16:15 10/24/16 16:22 White Blood Count 9.74 K/uL (4.8-10.8) Red Blood Count 4.99 M/uL (4.7-6.1) Hemoglobin 15.6 g/dL (14.0-18.0) Hematocrit 43.3 % (42-52) Mean Corpuscular Volume 86.8 fL (80-100) Mean Corpuscular Hemoglobin 31.3 pg (25-34) Mean Corpuscular Hemoglobin Concent 36.0 g/dl (32-36) Platelet Count 247 K/uL (130-400) Mean Platelet Volume 9.6 fL (7.4-10.4) Neutrophils (%) (Auto) 61.7 % Lymphocytes (%) (Auto) 30.0 % Monocytes (%) (Auto) 6.4 % Eosinophils (%) (Auto) 1.3 % Basophils (%) (Auto) 0.4 % Neutrophils # (Auto) 6.01 K/uL (1.4-6.5) Lymphocytes # (Auto) 2.92 K/uL (1.2-3.4) Monocytes # (Auto) 0.62 K/uL (0.11-0.59) Eosinophils # (Auto) 0.13 K/uL (0-0.5) Basophils # (Auto) 0.04 K/uL (0-0.2) RDW Standard Deviation 39.4 fL (36.4-46.3) RDW Coefficient of Variation 12.3 % (11.5-14.5) Immature Granulocyte % (Auto) 0.2 % Immature Granulocyte # (Auto) 0.02 K/uL (0.00-0.02) Anion Gap 9.0 mmol/L (3-11) Est Creatinine Clear Calc Drug Dose 91.8 ml/min Estimated GFR () 94.1 Estimated GFR (Non- 81.2 BUN/Creatinine Ratio 10.4 (10-20) Calcium Level 9.2 mg/dl (8.5-10.1) Magnesium Level 2.0 mg/dl (1.8-2.4) Total Bilirubin 0.4 mg/dl (0.2-1) Direct Bilirubin 0.1 mg/dl (0-0.2) Aspartate Amino Transf (AST/SGOT) 21 U/L (15-37) Alanine Aminotransferase (ALT/SGPT) 23 U/L (12-78) Alkaline Phosphatase 71 U/L (45-117) Total Protein 7.5 gm/dl (6.4-8.2) Albumin 4.2 gm/dl (3.4-5.0) Lipase 590 U/L (73-393) Thyroid Stimulating Hormone (TSH) 0.443 uIu/ml (0.300-4.500) Bedside Troponin I < 0.030 ng/ml (0-0.045) Laboratory results as reviewed by me. ECG Indication: abdominal pain Rate (beats per minute): 71 Rhythm: normal sinus Findings: no acute ischemic change, no ectopy ED Course 1600: The patient was evaluated in room A12B. A complete history and physical exam was performed. 1722: I talked with the patient about test results and he will follow up with surgery. 1730: Upon reevaluation, the patient appeared to have improvement of his symptoms. I discussed tonight's findings with him. He verbalized agreement of the treatment plan. He was discharged home. Medical Decision This is a 31-year-old male who presents with abdominal pain, chest discomfort and palpitations. Differential diagnosis includes PVCs, anxiety, dysrhythmia, umbilical hernia, incarcerated hernia. I did perform a limited focused review of portions of the patient's old chart on the electronic medical record. The patient was seen here in July for palpitations and a headache. The patient has a history of PVC's discovered on a Holter monitor while in college. He had blood work here and was discharged home for primary care and cardiology follow- up. Blood Pressure Screening: Patient was found to have an elevated blood pressure and was referred to their primary doctor for recheck and further treatment. Medication Reconciliation: I attest that I have personally reviewed the patient' s current medication list. I did evaluate the patient as noted above. The patient is presenting with abdominal pain. He states he feels a lump in his belly button that reduces. He 's had it for about 2 months and notes it's worse with lifting and when he stands up. On exam he has a easily reducible umbilical hernia. He also complains of some dizziness with some chest discomfort since starting hydroxyzine for his palpitations. IV access was established. 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 I did order and personally review the patient's 12-lead EKG and chest/abdominal x-rays as described above. His 12- lead EKG is unremarkable. X-rays do not show any signs of acute cardiopulmonary process or bowel obstruction. I did order and review the patient's blood work as noted in the electronic medical record. Labs are unremarkable other than a slightly elevated lipase. I did discuss this with him. He states that he has had slight elevations of his lipase in the past and he has had a workup for pancreatitis which was negative. 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 Tse of surgery to talk about this umbilical hernia. He was given lifting restrictions and discharged in good condition. Impression Primary Impression: Umbilical hernia Additional Impressions: Palpitations Acute chest pain Scribe Attestation The scribe's documentation has been prepared under my direct and personally reviewed by me in its entirety. I confirm that the note above accurately reflects all work, treatment, procedures, and medical decision making performed by me. Departure Information Dispostion Home / Self-Care Referrals Rosales Martini M.D. (PCP) Ashwin Santizo, DO Forms HOME CARE DOCUMENTATION FORM, IMPORTANT VISIT INFORMATION Patient Instructions ED Palpitations, Hernia How Develops, My [facility] Additional Instructions You have been examined and treated today on an emergency basis only. This is not a substitute for, or an effort to provide, complete comprehensive medical care. It is impossible to recognize and treat all injuries or illnesses in a single emergency department visit. It is therefore important that you follow up closely with your physician and Dr. Tse of surgery. Call as soon as possible for an appointment. Return for worsening symptoms or if you develop fever, vomiting, inability to push back your hernia, blood in your stool, or any other concerning symptoms. Problem Qualifiers Primary Impression: Umbilical hernia Obstruction and gangrene presence: without obstruction or gangrene Qualified Codes: K42.9 - Umbilical hernia without obstruction or gangrene
== END 2016-10-24 17:36 | disposition home or self-care (01) ==
LOC: C.EDB 15:47 → C.EDA 17:36
DX: K42.9 Umbilical hernia without obstruction or gangrene (principal); R00.2 Palpitations; R07.9 Chest pain, unspecified; F41.9 Anxiety disorder, unspecified; Z87.891 Personal history of nicotine dependence; Z88.2 Allergy status to sulfonamides; Z88.8 Allergy status to other drugs, medicaments and biological substances; Z91.09 Other allergy status, other than to drugs and biological substances; Z80.9 Family history of malignant neoplasm, unspecified; Z82.49 Family history of ischemic heart disease and other diseases of the circulatory system

== ENCOUNTER 2016-10-28 17:51 | Emergency (ER) | payer OTHER ==
[~2016-10-28] VITALS: Ht 167.6 cm; Wt 82.8 kg
[~2016-10-28 17:51] MED LIST changes: +ATR10 PO; -FLUT0.15; +FLUT0.15 NAE; -MULT1CAP17 PO
[2016-10-28 17:55] VITALS: Ht 167.6 cm; Wt 82.8 kg
[2016-10-28] MEDS ORDERED: KETOROLAC TROMETHAMINE 30 MG/ML VIAL IV STA (18:14)
[2016-10-28] MEDS ORDERED: SODIUM CHLORIDE 0.9% 1000ML 1,000 ML IV STA (18:14)
[2016-10-28 18:31] LABS: BASO % 0.4 %; BASO ABS # 0.04 K/uL (0-0.2); COMPLETE YES; EOS % 2.5 %; HEMATOCRIT 45.3 % (42-52); IG% 0.1 %; LYMPH % 36.7 %; LYMPH ABS # 3.38 K/uL (1.2-3.4); MEAN CELL VOLUME 87.6 fL (80-100); MEAN CORPUSCULAR HEMOGLOBIN 30.8 pg (25-34); MEAN CORPUSCULAR HGB CONC 35.1 g/dl (32-36); MEAN PLATELET VOLUME 9.8 fL (7.4-10.4); MONO % 7.3 %; PLATELET COUNT 227 K/uL (130-400); RED BLOOD COUNT 5.17 M/uL (4.7-6.1); WHITE BLOOD COUNT 9.22 K/uL (4.8-10.8)
[2016-10-28 18:49] LABS: ALT/SGPT 22 U/L (12-78); AST/SGOT 13 U/L (15-37); BLOOD UREA NITROGEN 12 mg/dl (7-18); BUN/CREATININE RATIO 12.3 (10-20); CALCIUM 9.1 mg/dl (8.5-10.1); CARBON DIOXIDE 26 mmol/L (21-32); CHLORIDE 106 mmol/L (98-107); GLUCOSE 85 mg/dl (70-99); POTASSIUM 3.9 mmol/L (3.5-5.1); SODIUM 140 mmol/L (136-145)
[2016-10-28 19:00] LABS: URINE APPEARANCE CLEAR (CLEAR); URINE BILIRUBIN NEG (NEG); URINE COLOR YELLOW; URINE EPITHELIAL CELL AUTO 0-5 /lpf (0-5); URINE NITRITE NEG (NEG); URINE SPECIFIC GRAVITY 1.008 (1.000-1.030); UROBILINOGEN NEG (NEG); ZZUR CULT IF INDIC CLEAN CATCH NO
[2016-10-28 19:00] LABS: ALKALINE PHOSPHATASE 71 U/L (45-117); THYROID STIMULATING HORMONE 0.498 uIu/ml (0.300-4.500)
--- NOTE | 2016-10-28 19:16 | DIAGNOSTIC IMAGING REPORT ---
ABDOMEN 2VIEW W/PA CHEST RTN CLINICAL HISTORY: hernia just above umbilicus pain. Hernia. COMPARISON STUDY: 10/24/2016 FINDINGS: The soft tissues, psoas shadows, renal outlines and intestinal gas pattern appear normal. There is no evidence for bowel obstruction. There is no evidence for free intraperitoneal air. No abnormal abdominal calcifications are seen. A frontal view of the chest was performed and is unremarkable. IMPRESSION: Negative chest. No acute process of the abdomen. No change from the prior study. The above report was generated using voice recognition software. It may contain grammatical, syntax or spelling errors. Electronically signed by: John Herndon M.D. 10/28/2016 7:15 PM Dictated Date/Time: 10/28/2016 7:13 PM
--- NOTE | 2016-10-28 19:24 | DIAGNOSTIC IMAGING REPORT ---
ABDOMEN LIMITED (US) HISTORY: Hernia periumbilical hernia. COMPARISON: None. FINDINGS: Small fat-containing periumbilical hernia. This appears to be nonreducible. Maximum transaxial dimension is 7 mm. This is nonreducible and non bowel containing IMPRESSION: 7 mm periumbilical hernia containing fat. This is nonreducible. No evidence of bowel containment The above report was generated using voice recognition software. It may contain grammatical, syntax or spelling errors. Electronically signed by: John Herndon M.D. 10/28/2016 7:23 PM Dictated Date/Time: 10/28/2016 7:21 PM
[2016-10-28 19:27] LABS: MANUAL MICROSCOPIC REQUIRED? NO; REVIEW REQ? NO
[2016-10-28] MEDS ORDERED: OPTIRAY 320 IV PRN (19:45)
--- NOTE | 2016-10-28 20:16 | DIAGNOSTIC IMAGING REPORT ---
CT ANGIOGRAPHY OF THE CHEST, PULMONARY EMBOLUS PROTOCOL CLINICAL HISTORY: Palpitations. Chest pain. Elevated d-dimer. COMPARISON STUDY: Chest CT January 25, 2016 and chest radiograph performed earlier today. TECHNIQUE: Following IV administration of 90 mL of Optiray-320, helical axial images of the chest were obtained utilizing the pulmonary embolus protocol. Maximal intensity projections and sagittal and coronal reformats were viewed on an independent 3D workstation. IV contrast was administered without complication. CT DOSE: 804.47 mGy.cm FINDINGS: No pulmonary emboli are identified. There is no evidence of thoracic aortic dissection. The size of the heart is normal. There is no pericardial effusion. No enlarged thoracic lymph nodes are present. A 2.1 cm nodule arising from the posterior aspect of the right thyroid lobe reflects the previously biopsied nodule. There are no areas of consolidation to suggest pneumonia. No pneumothorax or pleural effusion is present. Central airways are patent. Bony thorax and upper abdomen are unremarkable. IMPRESSION: 1. No pulmonary emboli identified. 2. No acute intrathoracic findings. Electronically signed by: Lakhwinder Herron M.D. 10/28/2016 8:15 PM Dictated Date/Time: 10/28/2016 8:08 PM
[2016-10-28 21:40] VITALS: BP 144/87; PULSE 87; TEMP 36.7; O2SAT 98
--- NOTE | 2016-10-29 00:31 | EMERGENCY ROOM VISIT NOTE ---
History Report prepared by Scribe: Ludivina Gomez Under the Supervision of: Dr. Jayson Guzman D.O. First contact with patient: 17:58 Chief Complaint: ABDOMINAL PAIN Stated Complaint: ABD PAIN,HERNIA NOT REDUCING,HEART PALPS History of Present Illness The patient is a 31 year old male who presents to the Emergency Room with complaints of persistent abdominal pain that started at 0700 this morning. He reports 5 days ago, he found out he has an umbilical hernia, but he has not seen a surgeon yet. He believes he's had the hernia for approximately 1 month. This morning, he woke up with abdominal pain, nausea, bloating and heart palpitations. He rates his discomfort as a 5/10. The patient also complains of some shortness of breath and chest pain. Exertion does not seem to worsen his symptoms. He is on Metoprolol for a history of hypertension and palpitations. He also admits to a history of anxiety, for which he takes Vistaril. He is not diabetic and denies any history of hyperlipidemia. He denies any recent travel, hemoptysis, surgery or trips. He admits to a history of a DVT in his left calf after undergoing surgery in January 2016. His las bowel movement was this morning and normal. Pt denies headache, change in vision, fevers, vomiting, diarrhea, pain with urination, and melena. Source of History: patient Onset: 0700 this morning Position: abdomen Symptom Intensity: 5/10 Timing: other (persistent) Associated Symptoms: + chest pain, + SOB, + nausea, No fevers, No headache, No vomiting, No melena, No diarrhea, No urinary symptoms Review of Systems See HPI for pertinent positives & negatives. A total of 10 systems reviewed and were otherwise negative. Past Medical & Surgical Medical Problems: (1) Acute sinusitis (2) Anxiety (3) Neck pain (4) Panic disorder (5) Seasonal allergies Family History Cancer FH: heart disease FH: pulmonary embolism Social History Smoking Status: Never Smoker Alcohol Use: occasionally Drug Use: none Marital Status: single Housing Status: lives with family Occupation Status: employed Current/Historical Medications Scheduled Hydroxyzine HCl (Hydroxyzine HCl), 10 MG PO HS Metoprolol Succ (Toprol Xl) (Toprol-Xl), 12.5 MG PO PM Paroxetine HCl (Paroxetine), 10 MG PO HS Probiotic Product (Probiotic), 1 CAP PO QPM Scheduled PRN Clonazepam (Klonopin), 0.5 MG PO TID PRN for Anxiety Fluticasone Propionate (Nasal) (Flonase Allergy Relief), 1 INHALER NA DAILY PRN for Nasal Congestion Allergies Coded Allergies: Chlorpheniramine (Unverified Allergy, Severe, anxiety, 10/28/16) Phenylpropanolamine (Unverified Allergy, Severe, anxiety, 10/28/16) Acarides (Mites) (Verified Allergy, Intermediate, "congestion", 10/28/16) Cat Dander (Verified Allergy, Intermediate, "congestion", 10/28/16) Dog Dander (Verified Allergy, Intermediate, "congestion", 10/28/16) Dust (Verified Allergy, Intermediate, "congestion", 10/28/16) Horse Dander (Verified Allergy, Intermediate, "congestion", 10/28/16) Sulfa Antibiotics (Verified Allergy, Unknown, HIVES, 10/28/16) Physical Exam Vital Signs Date Time Temp Pulse Resp B/P (MAP) Pulse Ox O2 Delivery O2 Flow Rate FiO2 10/28/16 21:40 36.7 87 16 144/87 98 10/28/16 20:15 87 16 144/87 10/28/16 20:14 144/87 10/28/16 18:51 58 13 10/28/16 18:46 71 14 10/28/16 18:41 67 15 10/28/16 18:36 69 16 10/28/16 18:31 63 12 10/28/16 18:26 73 13 10/28/16 18:21 70 10 10/28/16 18:18 75 10/28/16 17:55 36.7 72 18 129/83 98 Room Air Physical Exam GENERAL: Patient is alert, sitting up in bed, anxious, in no acute distress, non -toxic EYE EXAM: normal conjunctiva, PERRL and EOM's intact OROPHARYNX: no exudate, no erythema, lips, buccal mucosa, and tongue normal and mucous membranes are moist NECK: supple, no nuchal rigidity, no adenopathy, non-tender LUNGS: Clear to auscultation. Normal chest wall mechanics HEART: no murmurs, S1 normal and S2 normal ABDOMEN: abdomen soft, non-tender, normo-active bowel sounds, no masses, no rebound or guarding. BACK: Back is symmetrical on inspection and there is no deformity, no midline tenderness, no CVA tenderness. SKIN: no rashes and no bruising UPPER EXTREMITIES: upper extremities are grossly normal. LOWER EXTREMITIES: No pitting edema. NEURO EXAM: Normal sensorium, cranial nerves II-XII intact, normal speech, no weakness of arms, no weakness of legs. No drift. Finger to nose intact. Gross sensation intact. Medical Decision & Procedures ER Provider Diagnostic Interpretation: Radiology results as stated below per my review and the radiologist's interpretation: ABDOMEN LIMITED (US) HISTORY: Hernia periumbilical hernia. COMPARISON: None. FINDINGS: Small fat-containing periumbilical hernia. This appears to be nonreducible. Maximum transaxial dimension is 7 mm. This is nonreducible and non bowel containing IMPRESSION: 7 mm periumbilical hernia containing fat. This is nonreducible. No evidence of bowel containment The above report was generated using voice recognition software. It may contain grammatical, syntax or spelling errors. Electronically signed by: John Herndon M.D. 10/28/2016 7:23 PM ABDOMEN 2VIEW W/PA CHEST RTN CLINICAL HISTORY: hernia just above umbilicus pain. Hernia. COMPARISON STUDY: 10/24/2016 FINDINGS: The soft tissues, psoas shadows, renal outlines and intestinal gas pattern appear normal. There is no evidence for bowel obstruction. There is no evidence for free intraperitoneal air. No abnormal abdominal calcifications are seen. A frontal view of the chest was performed and is unremarkable. IMPRESSION: Negative chest. No acute process of the abdomen. No change from the prior study. The above report was generated using voice recognition software. It may contain grammatical, syntax or spelling errors. Electronically signed by: John Herndon M.D. 10/28/2016 7:[address] ANGIOGRAPHY OF THE CHEST, PULMONARY EMBOLUS PROTOCOL CLINICAL HISTORY: Palpitations. Chest pain. Elevated d-dimer. COMPARISON STUDY: Chest CT January 25, 2016 and chest radiograph performed earlier today. TECHNIQUE: Following IV administration of 90 mL of Optiray-320, helical axial images of the chest were obtained utilizing the pulmonary embolus protocol. Maximal intensity projections and sagittal and coronal reformats were viewed on an independent 3D workstation. IV contrast was administered without complication. CT DOSE: 804.47 mGy.cm FINDINGS: No pulmonary emboli are identified. There is no evidence of thoracic aortic dissection. The size of the heart is normal. There is no pericardial effusion. No enlarged thoracic lymph nodes are present. A 2.1 cm nodule arising from the posterior aspect of the right thyroid lobe reflects the previously biopsied nodule. There are no areas of consolidation to suggest pneumonia. No pneumothorax or pleural effusion is present. Central airways are patent. Bony thorax and upper abdomen are unremarkable. IMPRESSION: 1. No pulmonary emboli identified. 2. No acute intrathoracic findings. Electronically signed by: Lakhwinder Herron M.D. 10/28/2016 8:15 PM Laboratory Results 10/28/16 18:00 Red Blood Count 5.17, Mean Corpuscular Volume 87.6, Mean Corpuscular Hemoglobin 30.8, Mean Corpuscular Hemoglobin Concent 35.1, Mean Platelet Volume 9.8, Neutrophils (%) (Auto) 53.0, Lymphocytes (%) (Auto) 36.7, Monocytes (%) (Auto) 7.3, Eosinophils (%) (Auto) 2.5, Basophils (%) (Auto) 0.4, Neutrophils # (Auto) 4.89, Lymphocytes # (Auto) 3.38, Monocytes # (Auto) 0.67, Eosinophils # (Auto) 0.23, Basophils # (Auto) 0.04 10/28/16 18:00 Test 10/28/16 18:00 10/28/16 18:20 10/28/16 18:38 White Blood Count 9.22 K/uL (4.8-10.8) Red Blood Count 5.17 M/uL (4.7-6.1) Hemoglobin 15.9 g/dL (14.0-18.0) Hematocrit 45.3 % (42-52) Mean Corpuscular Volume 87.6 fL (80-100) Mean Corpuscular Hemoglobin 30.8 pg (25-34) Mean Corpuscular Hemoglobin Concent 35.1 g/dl (32-36) Platelet Count 227 K/uL (130-400) Mean Platelet Volume 9.8 fL (7.4-10.4) Neutrophils (%) (Auto) 53.0 % Lymphocytes (%) (Auto) 36.7 % Monocytes (%) (Auto) 7.3 % Eosinophils (%) (Auto) 2.5 % Basophils (%) (Auto) 0.4 % Neutrophils # (Auto) 4.89 K/uL (1.4-6.5) Lymphocytes # (Auto) 3.38 K/uL (1.2-3.4) Monocytes # (Auto) 0.67 K/uL (0.11-0.59) Eosinophils # (Auto) 0.23 K/uL (0-0.5) Basophils # (Auto) 0.04 K/uL (0-0.2) RDW Standard Deviation 39.5 fL (36.4-46.3) RDW Coefficient of Variation 12.3 % (11.5-14.5) Immature Granulocyte % (Auto) 0.1 % Immature Granulocyte # (Auto) 0.01 K/uL (0.00-0.02) D-Dimer 770 ug/L FEU (0-500) Anion Gap 8.0 mmol/L (3-11) Est Creatinine Clear Calc Drug Dose 110.0 ml/min Estimated GFR () 117.4 Estimated GFR (Non- 101.3 BUN/Creatinine Ratio 12.3 (10-20) Calcium Level 9.1 mg/dl (8.5-10.1) Total Bilirubin 0.4 mg/dl (0.2-1) Direct Bilirubin < 0.1 mg/dl (0-0.2) Aspartate Amino Transf (AST/SGOT) 13 U/L (15-37) Alanine Aminotransferase (ALT/SGPT) 22 U/L (12-78) Alkaline Phosphatase 71 U/L (45-117) Troponin I < 0.015 ng/ml (0-0.045) Total Protein 7.4 gm/dl (6.4-8.2) Albumin 4.1 gm/dl (3.4-5.0) Lipase 122 U/L (73-393) Thyroid Stimulating Hormone (TSH) 0.498 uIu/ml (0.300-4.500) Urine Color YELLOW Urine Appearance CLEAR (CLEAR) Urine pH 7.0 (4.5-7.5) Urine Specific [place] 1.008 (1.000-1.030) Urine Protein NEG (NEG) Urine Glucose (UA) NEG (NEG) Urine Ketones NEG (NEG) Urine Occult Blood NEG (NEG) Urine Nitrite NEG (NEG) Urine Bilirubin NEG (NEG) Urine Urobilinogen NEG (NEG) Urine Leukocyte Esterase NEG (NEG) Urine WBC (Auto) 0 /hpf (0-5) Urine RBC (Auto) 0-4 /hpf (0-4) Urine Hyaline Casts (Auto) 0 /lpf (0-5) Urine Epithelial Cells (Auto) 0-5 /lpf (0-5) Urine Bacteria (Auto) NEG (NEG) Lactic Acid Level 1.0 mmol/L (0.4-2.0) Laboratory results per my review. Medications Administered Medications (Trade) Dose Ordered Sig/Alejandra Route Start Time Stop Time Status Last Admin Dose Admin Sodium Chloride 1,000 ml @ 999 mls/hr Q1H1M STAT IV 10/28/16 18:14 10/28/16 19:14 DC 10/28/16 18:52 999 MLS/HR Ketorolac Tromethamine (Toradol Inj) 30 mg NOW STAT IV 10/28/16 18:14 10/28/16 18:16 DC 10/28/16 18:53 30 MG ECG Indication: palpitations Rate (beats per minute): 61 Rhythm: sinus rhythm Findings: no acute ischemic change, no ectopy, other (normal axis) ED Course ED COURSE: Vital signs were reviewed and showed normal vital signs. The patients medical record was reviewed The above diagnostic studies were performed and reviewed. ED treatments and interventions as stated above. 1801: The patient was evaluated in room B5. A complete history and physical examination was performed. 1813: Toradol 30 mg IV, NSS 1000 ml @ 999 mls/hr IV. 1939: I reevaluated the patient. I discussed his test results so far. 2100: Upon reevaluation, the patient is feeling well and resting comfortably. I discussed my findings with the patient and he understands and agrees with the treatment plan. Based on the patients age, coexisting illnesses, exam and lab findings the decision to treat as an outpatient was made. The patient remained stable while under my care. The patient appeared well at the time of discharge. Medical Decision Medication Reconciliation: I attest that I have personally reviewed the patient' s current medication list. Blood Pressure Screening: The patient was found to have a slightly elevated blood pressure due to circumstances. I do not believe that the patient requires hypertension monitoring. Differential diagnoses includes but is not limited to gastritis, peptic ulcer disease, GERD, gallbladder disease, pancreatitis, small bowel obstruction, acute coronary syndrome, pericarditis, ischemic bowel, irritable bowel disease, irritable bowel syndrome, appendicitis, diverticulitis, malignancy, hernia, urinary tract infection, torsion, perforation, trauma, infectious, acute coronary syndrome, myocardial infarction, pericarditis, pulmonary embolus, aortic dissection, pneumonia, pneumothorax, musculoskeletal, shingles, esophageal. Patient is a 31-year-old male who presents the ER with multiple complaints. He is complaining of intermittent chest pain shortness of breath. No exertional symptoms. Denies any history of diabetes, hypertension, hyperlipidemia or CAD. EKG, chest x-ray and troponin are negative with pain that has been present for greater than 8 hours. D-dimer was positive. CT PE was negative. He also complains of achy lower abdominal pain which he notes has been intermittently present for several weeks. Ultrasound shows a 7 mm fat-containing nonreducible umbilical hernia. Discussed with Dr. butler who recommends following up on Friday in the office. Lactate was negative. Obstruction series was unremarkable. No vomiting and moving bowels without difficulty. Patient was updated and will follow-up with general surgery on Friday as he already has an appointment with Dr. Greene. Discussed with Pt concerning signs and symptoms to watch out for. Pt was instructed to follow up with their PCP and discussed with the patient their option to return to the ED at anytime for persistent or worsening symptoms. The appropriate anticipatory guidance and out- patient management, including indications for return to the emergency department , were explained at length to the patient and understood. Impression Primary Impression: Umbilical hernia Additional Impression: Precordial chest pain Scribe Attestation The scribe's documentation has been prepared under my direction and personally reviewed by me in its entirety. I confirm that the note above accurately reflects all work, treatment, procedures, and medical decision making performed by me. Departure Information Dispostion Home / Self-Care Referrals Rosales Martini M.D. (PCP) Patient Instructions Hernia How Develops, My [facility] Additional Instructions Please follow up with your primary care doctor with in the next 24 hours. Any worsening of your symptoms, please return to the ED immediately. This includes fevers greater than 100.4, worsening abdominal pain, chest pain, shortness of breath, passing out, or any other concerning signs or symptoms from your standpoint. Please make sure that you follow-up with her general surgeon on Friday. Problem Qualifiers Primary Impression: Umbilical hernia Obstruction and gangrene presence: without obstruction or gangrene Qualified Codes: K42.9 - Umbilical hernia without obstruction or gangrene
[2016-11-08] MEDS ORDERED: HYDR-5688 PO (07:02)
== END 2016-10-28 21:40 | disposition home or self-care (01) ==
LOC: C.EDB 17:52
DX: K42.9 Umbilical hernia without obstruction or gangrene (principal); R07.2 Precordial pain; R06.02 Shortness of breath; I10 Essential (primary) hypertension; F41.0 Panic disorder [episodic paroxysmal anxiety]; Z86.718 Personal history of other venous thrombosis and embolism; Z98.890 Other specified postprocedural states; Z82.49 Family history of ischemic heart disease and other diseases of the circulatory system; Z79.899 Other long term (current) drug therapy

== ENCOUNTER → 2016-11-08 | Day surgery (SDC) | payer OTHER ==
[2016-11-04 12:04] VITALS: Ht 167.6 cm; Wt 81.8 kg
[~2016-11-08] VITALS: Ht 167.6 cm; Wt 81.8 kg
[~2016-11-08] MED LIST changes: +ATROPINE SULFATE 0.1 MG/ML 5ML SYR IV PRN; +BUPIVACAINE 0.5 % 5 MG/1 ML MPF 30ML VIAL ONE; +CEFAZOLIN 2000 MG/60 ML D5W IV SCH; +DEXAMETHASONE SOD INJ 4 MG/ML VIAL ONE; +EpHEDrine SULFATE INJ 50 MG/ML AMP IV PRN; +FENTANYL CITRATE INJ 50 MCG/1 ML 2 ML VIAL IV PRN; +FENTANYL CITRATE INJ 50 MCG/1 ML 2 ML VIAL ONE; +FLUMAZENIL 0.1 MG/1 ML 10 ML VIAL IV PRN; +HYDR-5688 PO; +HYDROCODONE/ACETAMOPHEN 5/325MG TAB PO PRN; +HYDROmorphone INJ 2 MG/ML SYR/VIAL IV PRN; +LABETALOL HCL IV 5 MG/ML 20ML IV PRN; +LIDOCAINE HCL 2% 2 ML VIAL (20MG/ML) ONE; +MEPERIDINE HCL 25 MG/ML CARP IV PRN; +MIDAZOLAM HCL 1 MG/ML 2ML VIAL ONE; +NALOXONE HCL 0.4 MG/1 ML VIAL/CARP IV PRN; +ONDANSETRON INJ 2 MG/ML 2 ML VIAL IV PRN; +ONDANSETRON INJ 2 MG/ML 2 ML VIAL ONE; +PHENYLEPHRINE 100MCG/ML 5ML SYR IV PRN; +PROPOFOL IV EMULSION 10 MG/ML 20 ML VIAL IV ONE; +ROCURONIUM BROMIDE 10 MG/ML 5 ML VIAL ONE; +SODIUM CHLORIDE 0.9% 1000ML 1,000 ML IV SCH; +SUCCINYLCHOLINE CHLORIDE 20 MG/ML 10 ML VIAL IV ONE
[2016-11-08] MEDS: LACTATED RINGER'S 1000ML 1,000 ML IV SCH ×2 (06:54→08:29)
--- NOTE | 2016-11-08 06:55 | History & Physical Bridge Note ---
H&P Re-Evaluation Bridge Note: I have examined the patient, reviewed the History & Physical and in the interval since the performance of the History & Physical I have noted the following changes of clinical significance: No changes noted
--- NOTE | 2016-11-08 07:06 | Discharge Instructions-SurgCtr ---
Discharge Instructions Date of Service Nov 08, 2016. Visit Reason for Visit: Incarcerated Epigastric Hernia Discharge Discharge Diagnosis / Problem: Incarcerated Epigastric Hernia Discharge Goals Goal(s): Decrease discomfort, Improve function Activity Recommendations Activity Limitations: as noted below Lifting Limitations: no more than 10 pounds Exercise/Sports Limitations: until after follow-up appointment May Resume Sexual Activity: after follow-up appointment Shower/Bathe: tomorrow Anesthesia . Post Anesthesia Instructions: If you have had General Anesthesia or IV Sedation: * Do not drive today. * Resume driving when surgeon permits. * Do not make important decisions or sign legal documents today. * Call surgeon for: 1. Temperature elevations greater than 101 degrees F. 2. Uncontrollable pain. 3. Excessive bleeding. 4. Persistent nausea and vomiting. 5. Medication intolerance (nausea, vomiting or rash). * For nausea and vomiting use only clear liquids such as: tea, soda, bouillon until nausea subsides, then gradually increase diet as tolerated. * If you have any concerns or questions, call your surgeon's office. If physician is unavailable and it is an emergency, call 911 or go to the nearest emergency room. . Instructions / Follow-Up Instructions / Follow-Up Please follow-up with Dr. Greene in the office in 1-2 weeks. Please call the office at [phone] to make an appointment if you do not have one already. Please call the office at [phone] with any questions or concerns. Diet Recommendations Home Diet: no limitations, resume previous diet Pending Studies Studies pending at discharge: no Medical Emergencies . Who to Call and When: Medical Emergencies: If at any time you feel your situation is an emergency, please call 911 immediately. . Non-Emergent Contact Non-Emergency issues call your: Primary Care Provider, Surgeon Call Non-Emergent contact if: temperature is above 101.5, your pain is not controlled, wound has increased drainage, wound has increased redness . . "Provider Documentation" section prepared by Noreen Do. . [place] Drug Monitoring Program Search Results: patient reviewed within database, no issues identified
--- NOTE | 2016-11-08 07:53 | [facility] Operative Report ---
Operative Report Operative Date Nov 08, 2016. Pre-Operative Diagnosis Incarcerated Epigastric Hernia Post-Operative Diagnosis Same Procedure(s) Performed Incarcerated Epigastric Hernia Open Repair Surgeon Dr. Greene Client Development Manager Surgeon(s) Rossy Do PA-C Estimated Blood Loss 5 ml Findings small sub-centimeter hernia with fat incarceration Specimens None Anesthesia get Complication(s) None Disposition Recovery Room / PACU Description of Procedure After informed consent was obtained the patient was taken to the operating suite and placed in supine position. After successful intubation the abdomen was shaved and sterilely prepped and draped in usual fashion. We began by making a supraumbilical incision directly over the palpable hernia with a 15 blade scalpel. This was carried down through the soft tissue using electrocautery. We encountered preperitoneal fat incarcerated within a small epigastric hernia. We excised this using electrocautery. We skeletonized the fascia around the hernia defect. Because of its small size I opted not to use mesh. An 0 Ethibond suture was used in interrupted [id number] fashion to primarily close the defect. it was approx a 1 cm defect. Any bleeding points were controlled using electrocautery. The wound was thoroughly irrigated. We closed multiple layers using 3-0 Vicryl for the deep layers and 4-0 Monocryl for the skin. Marcaine was injected around the area for postoperative analgesia and skin glue used as a dressing. The patient was awaken extubated and transferred recovery in stable condition I attest to the content of the Intraoperative Record and any orders documented therein. Any exceptions are noted below.
--- NOTE | 2016-11-08 08:29 | Anesthesia Progress Nt - [facility] ---
Anesthesia Post Op Note Date & Time Nov 08, 2016 at 08:29 Vital Signs Pain Intensity: 3 Vital Signs Past 12 Hours Date Time Temp Pulse Resp B/P (MAP) Pulse Ox O2 Delivery O2 Flow Rate FiO2 11/08/16 08:22 72 8 96 11/08/16 08:22 36.9 70 16 118/72 96 Room Air 11/08/16 08:22 73 8 11/08/16 08:21 118/72 11/08/16 08:17 72 4 96 11/08/16 08:17 72 4 11/08/16 08:16 114/69 11/08/16 08:12 74 15 11/08/16 08:12 74 15 96 11/08/16 08:11 119/72 11/08/16 08:07 75 9 11/08/16 08:07 75 9 98 11/08/16 08:06 122/77 11/08/16 08:02 75 11 99 11/08/16 08:02 75 11 11/08/16 08:01 116/78 11/08/16 07:57 75 12 99 11/08/16 07:57 75 12 11/08/16 07:56 125/72 11/08/16 07:52 79 19 11/08/16 07:52 79 19 99 11/08/16 07:51 117/74 11/08/16 07:47 77 14 99 11/08/16 07:47 76 14 11/08/16 07:46 125/79 11/08/16 07:43 140/82 11/08/16 07:42 37.0 77 16 140/82 98 Diffusion Mask 6 11/08/16 06:33 36.4 77 16 123/70 (87) 97 Room Air Notes Mental Status: alert / awake / arousable, participated in evaluation Pt Amnestic to Procedure: Yes Nausea / Vomiting: adequately controlled Pain: adequately controlled Airway Patency, RR, SpO2: stable & adequate BP & HR: stable & adequate Hydration State: stable & adequate Anesthetic Complications: no major complications apparent
[2016-11-08 08:36] VITALS: TEMP 36.8
[2016-11-08 09:05] VITALS: BP 129/81; PULSE 68; O2SAT 97
== END | disposition home or self-care (01) ==
LOC: X.SURG 06:14
PROVIDERS: ATTEND Surgery
DX: K43.6 Other and unspecified ventral hernia with obstruction, without gangrene (principal); J45.909 Unspecified asthma, uncomplicated; Z87.891 Personal history of nicotine dependence; Z79.899 Other long term (current) drug therapy

== ENCOUNTER → 2017-02-26 | Outpatient (CLI) | payer OTHER ==
[~2017-02-26] MED LIST changes: -ATR10 PO; -ATROPINE SULFATE 0.1 MG/ML 5ML SYR IV PRN; -BUPIVACAINE 0.5 % 5 MG/1 ML MPF 30ML VIAL ONE; -CEFAZOLIN 2000 MG/60 ML D5W IV SCH; -DEXAMETHASONE SOD INJ 4 MG/ML VIAL ONE; -EpHEDrine SULFATE INJ 50 MG/ML AMP IV PRN; -FENTANYL CITRATE INJ 50 MCG/1 ML 2 ML VIAL IV PRN; -FENTANYL CITRATE INJ 50 MCG/1 ML 2 ML VIAL ONE; -FLUMAZENIL 0.1 MG/1 ML 10 ML VIAL IV PRN; -HYDR-5688 PO; -HYDROCODONE/ACETAMOPHEN 5/325MG TAB PO PRN; -HYDROmorphone INJ 2 MG/ML SYR/VIAL IV PRN; -LABETALOL HCL IV 5 MG/ML 20ML IV PRN; -LIDOCAINE HCL 2% 2 ML VIAL (20MG/ML) ONE; -MEPERIDINE HCL 25 MG/ML CARP IV PRN; -MIDAZOLAM HCL 1 MG/ML 2ML VIAL ONE; -NALOXONE HCL 0.4 MG/1 ML VIAL/CARP IV PRN; -ONDANSETRON INJ 2 MG/ML 2 ML VIAL IV PRN; -ONDANSETRON INJ 2 MG/ML 2 ML VIAL ONE; -PHENYLEPHRINE 100MCG/ML 5ML SYR IV PRN; -PROPOFOL IV EMULSION 10 MG/ML 20 ML VIAL IV ONE; -ROCURONIUM BROMIDE 10 MG/ML 5 ML VIAL ONE; -SODIUM CHLORIDE 0.9% 1000ML 1,000 ML IV SCH; -SUCCINYLCHOLINE CHLORIDE 20 MG/ML 10 ML VIAL IV ONE
--- NOTE | 2017-02-26 16:19 | DIAGNOSTIC IMAGING REPORT ---
L VENOUS DOPP LOWER EXT UNILAT CLINICAL HISTORY: 31 years-old Male presenting with LEFT LEG PAIN AND SWELLING. TECHNIQUE: Real-time grayscale and color and spectral Doppler ultrasound imaging of the veins of the left lower extremity was performed. Compression and augmentation were also utilized. COMPARISON: None. FINDINGS: Left: Common femoral vein: Patent. Femoral vein: Patent. Greater saphenous vein: Patent. Popliteal vein: Patent. Calf veins: Patent. Other: None. IMPRESSION: No evidence of deep venous thrombosis. Electronically signed by: Nilo Pelayo M.D. 02/26/2017 4:17 PM Dictated Date/Time: 02/26/2017 4:17 PM
== END | disposition home or self-care (01) ==
LOC: C.ULTR 15:32
PROVIDERS: ATTEND Physician Assistant
DX: M79.605 Pain in left leg (principal); M79.89 Other specified soft tissue disorders

== ENCOUNTER 2017-03-06 13:56 | Emergency (ER) | payer OTHER ==
[~2017-03-06] VITALS: Ht 167.6 cm; Wt 90.0 kg
[2017-03-06 13:58] VITALS: TEMP 36.7; Ht 167.6 cm; Wt 90.0 kg
--- NOTE | 2017-03-06 14:22 | EMERGENCY ROOM VISIT NOTE ---
History First contact with patient: 14:06 Chief Complaint: ABDOMINAL PAIN Stated Complaint: PAIN UPPER R ABD NAUSEA Nursing Triage Summary: pt states "i was completely fine until I ate" then pt developed RUQ pain with nausea History of Present Illness The patient is a 31 year old male who presents to the Emergency Room with complaints of RUQ pain, which started suddenly after eating. He has had pain like this before, but this is more severe and is accompanied by nausea. He has been nauseated all day, started when he woke up, but nausea increased in intensity after eating. He also reports gas and bloating and belching He has a hx of elevated lipase with similar presentation about 1 year ago ; and had an US and HIDA scan which showed polyps in the GB He had normal BM this morning, which was normal color and consistency. current pain is 0 lying still but with activity or change of position 8/10. He does have IBS, was recently in for constipation and hard stool. he has had hida scans, was found to have polyps in the gallbladder, has Fam Hx of gallbadder issue (dad and GP removed, mother has chronic GB issues). Review of Systems Constitutional: No fever, No chills, No sweats, No weight loss, No weakness , No fatigue, No problem reported ENT: No hearing loss, No unusual epistaxis, No nasal symptoms, No sore throat, No tinnitus, No dental problems, No trouble swallowing, No problem reported Respiratory: No cough, No sputum, No wheezing, No shortness of breath, No dyspnea on exertion, No dyspnea at rest, No hemoptysis, No problem reported Cardiovascular: No chest pain, No orthopnea, No PND, No edema, No claudication, No palpitations, No problem reported Abdomen: + pain, + nausea, No vomiting, No diarrhea, No constipation Musculoskeletal: + joint pain (prev knee surgery) Genitourinary - Male: No hematuria, No dysuria, No urinary frequency, No urinary urgency, No urinary hesitancy, No urinary retention, No urinary incontinence, No penile discharge, No lesions, No impotence, No problem reported Neurologic: + problem reported (has had dizzy spells in the past few days), No memory loss, No paralysis, No weakness, No numbness/tingling, No vertigo, No balance problems Allergic / Immunologic: + environmental allergies, + seasonal allergies Past Medical/Surgical History Medical Problems: (1) Acute sinusitis (2) Anxiety (3) Neck pain (4) Panic disorder (5) Seasonal allergies Family History Cancer FH: heart disease FH: pulmonary embolism Social History Smoking Status: Former Smoker Alcohol Use: occasionally Drug Use: none Marital Status: single Housing Status: lives with family Occupation Status: employed Current/Historical Medications Scheduled Clonazepam (Klonopin), 0.5 MG PO TID Fluticasone Propionate (Nasal) (Flonase Allergy Relief), 1 SPRAY MARIS QAM Metoprolol Succ (Toprol Xl) (Toprol-Xl), 12.5 MG PO HS Paroxetine HCl (Paroxetine), 10 MG PO HS Probiotic Product (Probiotic), 1 CAP PO HS Physical Exam Vital Signs Date Time Temp Pulse Resp B/P (MAP) Pulse Ox O2 Delivery O2 Flow Rate FiO2 03/06/17 13:58 36.7 94 18 145/96 95 Room Air Pain Rating (0-10): 1 Physical Exam General Appearance: WD/WN, no apparent distress Head: normocephalic, atraumatic Eyes: normal inspection, EOMI ENT: hearing grossly normal Neck: supple, no JVD Respiratory/Chest: chest non-tender, lungs clear, normal breath sounds, no respiratory distress, no accessory muscle use Cardiovascular: regular rate, rhythm, no edema, no gallop, no JVD, no murmur , normal peripheral pulses Abdomen / GI: normal bowel sounds, soft, no organomegaly, no pulsatile mass , + tenderness, + pertinent finding (positive braxton's sign in RUQ) Back: normal inspection, no CVA tenderness Extremities: normal inspection, no calf tenderness, no pedal edema Neurologic/Psych: 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 COMPARISON STUDY: CT scan dated 04/09/2016 FINDINGS: The pancreas appears sonographically normal. No focal hepatic masses are visualized. There is no ductal dilatation. The common bile duct measures 3 mm. No gallstones are visualized. A few tiny gallbladder polyps are delineated. There is no pericholecystic fluid. There is no gallbladder wall thickening. There is no right-sided hydronephrosis. IMPRESSION: 1. Tiny gallbladder polyps. Otherwise ultrasonographically normal gallbladder. 2. Ultrasonographically normal liver and pancreas 3. No evidence of ductal dilatation. Laboratory Results 03/06/17 14:10 Red Blood Count 5.08, Mean Corpuscular Volume 88.8, Mean Corpuscular Hemoglobin 31.3, Mean Corpuscular Hemoglobin Concent 35.3, Mean Platelet Volume 10.2, Neutrophils (%) (Auto) 56.3, Lymphocytes (%) (Auto) 32.1, Monocytes (%) (Auto) 9.2, Eosinophils (%) (Auto) 1.7, Basophils (%) (Auto) 0.4, Neutrophils # (Auto) 4.43, Lymphocytes # (Auto) 2.52, Monocytes # (Auto) 0.72, Eosinophils # (Auto) 0.13, Basophils # (Auto) 0.03 03/06/17 14:10 Test 03/06/17 14:10 White Blood Count 7.85 K/uL (4.8-10.8) Red Blood Count 5.08 M/uL (4.7-6.1) Hemoglobin 15.9 g/dL (14.0-18.0) Hematocrit 45.1 % (42-52) Mean Corpuscular Volume 88.8 fL (80-100) Mean Corpuscular Hemoglobin 31.3 pg (25-34) Mean Corpuscular Hemoglobin Concent 35.3 g/dl (32-36) Platelet Count 236 K/uL (130-400) Mean Platelet Volume 10.2 fL (7.4-10.4) Neutrophils (%) (Auto) 56.3 % Lymphocytes (%) (Auto) 32.1 % Monocytes (%) (Auto) 9.2 % Eosinophils (%) (Auto) 1.7 % Basophils (%) (Auto) 0.4 % Neutrophils # (Auto) 4.43 K/uL (1.4-6.5) Lymphocytes # (Auto) 2.52 K/uL (1.2-3.4) Monocytes # (Auto) 0.72 K/uL (0.11-0.59) Eosinophils # (Auto) 0.13 K/uL (0-0.5) Basophils # (Auto) 0.03 K/uL (0-0.2) RDW Standard Deviation 39.8 fL (36.4-46.3) RDW Coefficient of Variation 12.4 % (11.5-14.5) Immature Granulocyte % (Auto) 0.3 % Immature Granulocyte # (Auto) 0.02 K/uL (0.00-0.02) Anion Gap 7.0 mmol/L (3-11) Est Creatinine Clear Calc Drug Dose 99.5 ml/min Estimated GFR () 99.1 Estimated GFR (Non- 85.5 BUN/Creatinine Ratio 11.9 (10-20) Calcium Level 9.3 mg/dl (8.5-10.1) Total Bilirubin 0.4 mg/dl (0.2-1) Direct Bilirubin 0.1 mg/dl (0-0.2) Aspartate Amino Transf (AST/SGOT) 17 U/L (15-37) Alanine Aminotransferase (ALT/SGPT) 23 U/L (12-78) Alkaline Phosphatase 83 U/L (45-117) Total Protein 7.8 gm/dl (6.4-8.2) Albumin 4.2 gm/dl (3.4-5.0) Lipase 470 U/L (73-393) Medications Administered Medications (Trade) Dose Ordered Sig/Alejandra Route Start Time Stop Time Status Last Admin Dose Admin Ondansetron HCl (Zofran Inj) 4 mg Q4H PRN IV 03/06/17 14:45 04/05/17 14:44 03/06/17 14:49 4 MG ED Course 1415: H&P obtained by myself 1445: ordered zofran, cbc, prp, lipase, Liver profile; [facility] 1450: h&[ obtained by Dr. mcconnell 1500: Ordered toradol prn 30 mg for pain. 1545: obtained results from [facility]; nothing abnormal detected. 1615: Discussed results with patient, patient agrees to follow up with GI early next week. Medical Decision Prior records/ancillary studies reviewed. Triage Nursing notes reviewed. Additional history obtained from patient and family. The patient's history was concerning for abdominal pain. Differential diagnosis: Etiologies such as appendicitis, diverticulitis, PUD, biliary pathology, UTI, pancreatitis, obstruction, mesenteric ischemia, aortic pathology, infections, inflammatory bowel disease, renal colic, as well as others were entertained. Physical examination findings: As above. ER treatment provided: zofran 4 mg, 30 mg toradol prn, On reassessment the patient felt better. Diagnostics interpreted by me: The labs revealed normal WBC, Hgb, BMP, lipase of 470. Imaging studies: GBUS as above By the evaluation outlined above emergent etiologies such as appendicitis, diverticulitis, PUD, biliary pathology, UTI, pancreatitis, obstruction, mesenteric ischemia, aortic pathology, infections, inflammatory bowel disease, renal colic, as well as others were deemed relatively unlikely. The patient and family were informed about the findings as listed above. All questions were answered and they were pleased with the treatment. Return instructions were outlined and the patient was discharged in stable condition. Referral: The patient was referred back to their primary care physician for follow-up in 2 to 3 days for a recheck of the current condition. As well as follow up with GI services early next week. Impression Primary Impression: Right upper quadrant abdominal pain Departure Information Dispostion Home / Self-Care Condition GOOD Referrals Rosales Martini M.D. (PCP) Patient Instructions Abdominal Pain, My [facility] Additional Instructions ABDOMINAL PAIN INSTRUCTIONS: DO NOT drive, drink alcohol, operate machinery, or perform dangerous activities today. You were given medications in the ER that can affect your ability to safely function or operate a vehicle. Ibuprofen(Motrin, Advil) may be used for fever or pain. Use 600mg every six hours as needed. Take with food. Avoid using more than 2400mg in a 24 hour period. Do not use 2400mg per day for more than three consecutive days without physician direction. Prolonged inappropriate use can lead to stomach upset or ulcers. This is available over the counter and typically comes in 200mg tablets. (AND/OR) Acetaminophen(Tylenol) may be used for fever or pain. Use 1000mg every eight hours as needed. Avoid using more than 3000mg in a 24 hour period. This is available over the counter. Read all the package inserts or medication information paperwork provided. If you have any questions or concerns call your primary provider, pharmacist or the ER for assistance. Rest and drink plenty of fluids as tolerated. Slow sips of water or sports drinks are recommended instead of large amounts all at once. Continue current medications. Once your stomach is settled start with a clear liquid diet (jello, soup broth, etc.) and then advance as tolerated. You should avoid full, heavy meals for about 24 hrs from the time your symptoms resolved. Return to the ER immediately for worsening or persistent abdominal pain, vomiting, fevers, chest pains, difficulty breathing, black or bloody stools, worsening of your condition, or as needed. Return to the ER or follow up with your primary provider in 8-12 hours for a recheck of your current condition. Follow up with your primary physician in 1-2 days for a recheck of your current condition. Follow up with the gastroenterolgy team early next week for further evaluation. Resident Tracking Resident Involvement: Resident Care Provided Care Provided: Adult ED
[2017-03-06] MEDS ORDERED: ONDANSETRON INJ 2 MG/ML 2 ML VIAL IV PRN (14:45)
[2017-03-06 14:58] LABS: BASO % 0.4 %; BASO ABS # 0.03 K/uL (0-0.2); COMPLETE YES; EOS % 1.7 %; HEMATOCRIT 45.1 % (42-52); IG% 0.3 %; LYMPH % 32.1 %; LYMPH ABS # 2.52 K/uL (1.2-3.4); MEAN CELL VOLUME 88.8 fL (80-100); MEAN CORPUSCULAR HEMOGLOBIN 31.3 pg (25-34); MEAN CORPUSCULAR HGB CONC 35.3 g/dl (32-36); MEAN PLATELET VOLUME 10.2 fL (7.4-10.4); MONO % 9.2 %; NEUT % 56.3 %; PLATELET COUNT 236 K/uL (130-400); RED BLOOD COUNT 5.08 M/uL (4.7-6.1); WHITE BLOOD COUNT 7.85 K/uL (4.8-10.8)
[2017-03-06 15:09] LABS: BUN/CREATININE RATIO 11.9 (10-20); CALCIUM 9.3 mg/dl (8.5-10.1); CREATININE 1.15 mg/dl (0.60-1.40)
--- NOTE | 2017-03-06 15:10 | EMERGENCY ROOM VISIT NOTE ---
History Report prepared by Marcelo: Claudine Dumont Under the Supervision of: Dr. Miguel Angel Corona M.D. First contact with patient: 14:03 Chief Complaint: ABDOMINAL PAIN Stated Complaint: PAIN UPPER R ABD NAUSEA Nursing Triage Summary: Patient c/o RUQ abdominal pain with nauea after eating Thanksgiving meal. Patient had nausea this AM before eating, but nausea worsened after eating. Patient states no pain when still, pain can be severe when in certain positions. Patient has had RUQ abdominal pain in past, testing done 1-2 years ago. Patient states family hx of gallbladder problems. Normal BM today. History of Present Illness The patient is a 31 year old male who presents to the Emergency Room with complaints of constant RUQ abdominal pain which began suddenly today after eating Thanksgiving dinner. The patient has had pain like this in the past but states that his current pain is more severe. He rates his current pain as a 5/ 10 in severity. The patient is also experiencing nausea, gas, bloating, and belching. Movement or changing position exacerbates his pain. He had a normal BM this morning. The patient denies vomiting, diarrhea, shortness of breath, and urinary symptoms. 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 He states that this does not feel like his typical IBS flare-ups. He has a hx of elevated lipase with similar presentation; and had an US and HIDA scan which showed polyps in the GB. 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 Review of Systems See HPI for pertinent positives & negatives. A total of 10 systems reviewed and were otherwise negative. Past Medical & Surgical Medical Problems: (1) Acute sinusitis (2) Anxiety (3) Neck pain (4) Panic disorder (5) Seasonal allergies Family History Cancer FH: heart disease FH: pulmonary embolism FHx: gallbladder disease Social History Smoking Status: Former Smoker Alcohol Use: occasionally Drug Use: none Marital Status: single Housing Status: lives with family Occupation Status: employed Current/Historical Medications Scheduled Clonazepam (Klonopin), 0.5 MG PO TID Fluticasone Propionate (Nasal) (Flonase Allergy Relief), 1 SPRAY MARIS QAM Metoprolol Succ (Toprol Xl) (Toprol-Xl), 12.5 MG PO HS Paroxetine HCl (Paroxetine), 10 MG PO HS Probiotic Product (Probiotic), 1 CAP PO HS Allergies Coded Allergies: Chlorpheniramine (Unverified Allergy, Severe, anxiety, 03/06/17) Phenylpropanolamine (Unverified Allergy, Severe, anxiety, 03/06/17) Acarides (Mites) (Verified Allergy, Intermediate, "congestion", 03/06/17) Cat Dander (Verified Allergy, Intermediate, "congestion", 03/06/17) Dog Dander (Verified Allergy, Intermediate, "congestion", 03/06/17) Dust (Verified Allergy, Intermediate, "congestion", 03/06/17) Horse Dander (Verified Allergy, Intermediate, "congestion", 03/06/17) Sulfa Antibiotics (Verified Allergy, Unknown, HIVES, 03/06/17) Physical Exam Vital Signs Date Time Temp Pulse Resp B/P (MAP) Pulse Ox O2 Delivery O2 Flow Rate FiO2 03/06/17 16:42 65 18 128/89 98 03/06/17 13:58 36.7 94 18 145/96 95 Room Air Pain Rating (0-10): 1 Physical Exam General: Non-ill appearing young male in no acute distress. HEENT: Normal cephalic atraumatic. Pupils are equal round and reactive to light. Extraocular movements are intact. Oropharynx is pink with moist mucous membranes. No swelling of the mouth lips or tongue. Neck: Supple with a midline trachea. No meningeal signs or stiffness, no JVD or bruits. No Stridor. Chest: Clear to auscultation bilaterally. No wheezes or rhonchi. No increased work of breathing. Heart: regular rate and rhythm. Abdomen: Soft minimally tender in the RUQ, nondistended without rebound guarding or rigidity. Extremities: No cyanosis clubbing or edema. No calf tenderness or assymetry Spine/Back. Non tender to palpation. No CVA tenderness Skin: Good turgor without rashes. Neurologic exam: Cranial nerves two through 12 are intact. Motor and sensation are intact and symmetrical throughout. Medical Decision & Procedures ER Provider Diagnostic Interpretation: Radiology results as stated below per my review and radiologist interpretation: BILIARY ULTRASOUND CLINICAL HISTORY: Right upper quadrant abdominal pain and positive Braxton sign. COMPARISON STUDY: CT scan dated 04/09/2016 FINDINGS: The pancreas appears sonographically normal. No focal hepatic masses are visualized. There is no ductal dilatation. The common bile duct measures 3 mm. No gallstones are visualized. A few tiny gallbladder polyps are delineated. There is no pericholecystic fluid. There is no gallbladder wall thickening. There is no right-sided hydronephrosis. IMPRESSION: 1. Tiny gallbladder polyps. Otherwise ultrasonographically normal gallbladder. 2. Ultrasonographically normal liver and pancreas 3. No evidence of ductal dilatation. Electronically signed by: Herman Cain M.D. 03/06/2017 3:47 PM Dictated Date/Time: 03/06/2017 3:45 PM Laboratory Results 03/06/17 14:10 Red Blood Count 5.08, Mean Corpuscular Volume 88.8, Mean Corpuscular Hemoglobin 31.3, Mean Corpuscular Hemoglobin Concent 35.3, Mean Platelet Volume 10.2, Neutrophils (%) (Auto) 56.3, Lymphocytes (%) (Auto) 32.1, Monocytes (%) (Auto) 9.2, Eosinophils (%) (Auto) 1.7, Basophils (%) (Auto) 0.4, Neutrophils # (Auto) 4.43, Lymphocytes # (Auto) 2.52, Monocytes # (Auto) 0.72, Eosinophils # (Auto) 0.13, Basophils # (Auto) 0.03 03/06/17 14:10 Test 03/06/17 14:10 White Blood Count 7.85 K/uL (4.8-10.8) Red Blood Count 5.08 M/uL (4.7-6.1) Hemoglobin 15.9 g/dL (14.0-18.0) Hematocrit 45.1 % (42-52) Mean Corpuscular Volume 88.8 fL (80-100) Mean Corpuscular Hemoglobin 31.3 pg (25-34) Mean Corpuscular Hemoglobin Concent 35.3 g/dl (32-36) Platelet Count 236 K/uL (130-400) Mean Platelet Volume 10.2 fL (7.4-10.4) Neutrophils (%) (Auto) 56.3 % Lymphocytes (%) (Auto) 32.1 % Monocytes (%) (Auto) 9.2 % Eosinophils (%) (Auto) 1.7 % Basophils (%) (Auto) 0.4 % Neutrophils # (Auto) 4.43 K/uL (1.4-6.5) Lymphocytes # (Auto) 2.52 K/uL (1.2-3.4) Monocytes # (Auto) 0.72 K/uL (0.11-0.59) Eosinophils # (Auto) 0.13 K/uL (0-0.5) Basophils # (Auto) 0.03 K/uL (0-0.2) RDW Standard Deviation 39.8 fL (36.4-46.3) RDW Coefficient of Variation 12.4 % (11.5-14.5) Immature Granulocyte % (Auto) 0.3 % Immature Granulocyte # (Auto) 0.02 K/uL (0.00-0.02) Anion Gap 7.0 mmol/L (3-11) Est Creatinine Clear Calc Drug Dose 99.5 ml/min Estimated GFR () 99.1 Estimated GFR (Non- 85.5 BUN/Creatinine Ratio 11.9 (10-20) Calcium Level 9.3 mg/dl (8.5-10.1) Total Bilirubin 0.4 mg/dl (0.2-1) Direct Bilirubin 0.1 mg/dl (0-0.2) Aspartate Amino Transf (AST/SGOT) 17 U/L (15-37) Alanine Aminotransferase (ALT/SGPT) 23 U/L (12-78) Alkaline Phosphatase 83 U/L (45-117) Total Protein 7.8 gm/dl (6.4-8.2) Albumin 4.2 gm/dl (3.4-5.0) Lipase 470 U/L (73-393) Laboratory studies as stated above per my review. Medications Administered Medications (Trade) Dose Ordered Sig/Alejandra Route Start Time Stop Time Status Last Admin Dose Admin Ondansetron HCl (Zofran Inj) 4 mg Q4H PRN IV 03/06/17 14:45 03/06/17 17:15 DC 03/06/17 14:49 4 MG ED Course 1403: Past medical records reviewed. The patient was evaluated in room A10, and a complete history and physical examination were performed. 1445: Zofran 4 mg IV - PRN 1515: Toradol 30 mg IV - PRN 1625: I reassessed the patient at this time. He is feeling better and resting comfortably. I discussed the results and treatment plan with the patient. I answered all pertaining questions that he had. He expressed understanding and verbalized agreement. The patient will be discharged home. Medical Decision Differentials include, but are not limited to; gallbladder disease, IBS, pancreatitis, infection, electrolyte or metabolic abnormality. This patient comes in as described above. He was placed room A 10. He complains of having right upper quadrant abdominal pain after eating, he seems a lot better now. He has minimal tenderness on exam and no peritonitis. He has had this investigated in the past and had a HIDA scan in April 2015 which was normal. Gallbladder disease does run strongly the family. In light of this , we did an ultrasound and blood work. IV access established was given IV Zofran . He has remained stable and looks well. Ultrasound does not show any acute abnormalities. He has nothing to suggest acute cholecystitis or hepatitis or pancreatitis. His lipase is minimally elevated. This is been a chronic ongoing issue. I do think he needs follow-up with his regular doctor. He has had a lot of stress lately and this could be playing a role as well he does have IBS. He should return if: increasing pain, worsening of symptoms, fever chills, any problems or concerns. He is happy with plan and discharged to home. Medication Reconcilliation Current Medication List: was personally reviewed by me Impression Primary Impression: Right upper quadrant abdominal pain Scribe Attestation The scribe's documentation has been prepared under my direction and personally reviewed by me in its entirety. I confirm that the note above accurately reflects all work, treatment, procedures, and medical decision making performed by me. Departure Information Dispostion Home / Self-Care Referrals Rosales Martini M.D. (PCP) Forms HOME CARE DOCUMENTATION FORM, IMPORTANT VISIT INFORMATION Patient Instructions Abdominal Pain, My [facility] Additional Instructions ABDOMINAL PAIN INSTRUCTIONS: DO NOT drive, drink alcohol, operate machinery, or perform dangerous activities today. You were given medications in the ER that can affect your ability to safely function or operate a vehicle. Ibuprofen(Motrin, Advil) may be used for fever or pain. Use 600mg every six hours as needed. Take with food. Avoid using more than 2400mg in a 24 hour period. Do not use 2400mg per day for more than three consecutive days without physician direction. Prolonged inappropriate use can lead to stomach upset or ulcers. This is available over the counter and typically comes in 200mg tablets. (AND/OR) Acetaminophen(Tylenol) may be used for fever or pain. Use 1000mg every eight hours as needed. Avoid using more than 3000mg in a 24 hour period. This is available over the counter. Read all the package inserts or medication information paperwork provided. If you have any questions or concerns call your primary provider, pharmacist or the ER for assistance. Rest and drink plenty of fluids as tolerated. Slow sips of water or sports drinks are recommended instead of large amounts all at once. Eat small meals consistently daily instead of large meals all at once. Continue current medications. Once your stomach is settled start with a clear liquid diet (jello, soup broth, etc.) and then advance as tolerated. You should avoid full, heavy meals for about 24 hrs from the time your symptoms resolved. Return to the ER immediately for worsening or persistent abdominal pain, vomiting, fevers, chest pains, difficulty breathing, black or bloody stools, worsening of your condition, or as needed. Return to the ER or follow up with your primary provider in 8-12 hours for a recheck of your current condition.
[2017-03-06] MEDS ORDERED: KETOROLAC TROMETHAMINE 30 MG/ML VIAL IV PRN (15:15)
--- NOTE | 2017-03-06 15:48 | DIAGNOSTIC IMAGING REPORT ---
BILIARY ULTRASOUND CLINICAL HISTORY: Right upper quadrant abdominal pain and positive Braxton sign. COMPARISON STUDY: CT scan dated 04/09/2016 FINDINGS: The pancreas appears sonographically normal. No focal hepatic masses are visualized. There is no ductal dilatation. The common bile duct measures 3 mm. No gallstones are visualized. A few tiny gallbladder polyps are delineated. There is no pericholecystic fluid. There is no gallbladder wall thickening. There is no right-sided hydronephrosis. IMPRESSION: 1. Tiny gallbladder polyps. Otherwise ultrasonographically normal gallbladder. 2. Ultrasonographically normal liver and pancreas 3. No evidence of ductal dilatation. Electronically signed by: Herman Cain M.D. 03/06/2017 3:47 PM Dictated Date/Time: 03/06/2017 3:45 PM
[2017-03-06 16:42] VITALS: BP 128/89; PULSE 65; O2SAT 98
== END 2017-03-06 16:46 | disposition home or self-care (01) ==
LOC: C.EDB 13:57 → C.EDA 16:46
DX: R10.11 Right upper quadrant pain (principal); F41.0 Panic disorder [episodic paroxysmal anxiety]; J30.2 Other seasonal allergic rhinitis; Z87.891 Personal history of nicotine dependence

== ENCOUNTER 2017-04-19 17:51 | Emergency (ER) | payer OTHER ==
[~2017-04-19] VITALS: Ht 167.6 cm; Wt 85.5 kg
[2017-04-19 18:02] VITALS: BP 140/98; PULSE 106; TEMP 37; O2SAT 97; Ht 167.6 cm; Wt 85.5 kg
[2017-04-19] MEDS ORDERED: KETOROLAC TROMETHAMINE 60 MG/2 ML VIAL IM STA (18:10)
[2017-04-19] MEDS ORDERED: ONDANSETRON 4MG OD TAB PO ONE (18:15)
--- NOTE | 2017-04-19 18:58 | EMERGENCY ROOM VISIT NOTE ---
History Report prepared by Marcelo: Marguerite Alan Under the Supervision of: Dr. Miguel Angel Corona M.D. First contact with patient: 18:05 Chief Complaint: TESTICULAR PAIN Stated Complaint: RT TESTICULAR/GROIN PAIN Nursing Triage Summary: sudden onset of right testicle pain since 3pm denies injury denies any swelling denies urinary s/s History of Present Illness The patient is a 31 year old male who presents to the Emergency Room with complaints of persistent right testicular pain starting 1500 today. The pain started suddenly while changing his daughter's diaper. He has had this pain before. It is starting to improve. He is feeling nauseous. He denies any urinary symptoms, penile lesions, or penile discharge. He denies any trauma. He was doing some heavy lifting yesterday while working on his car. He has a history of anxiety and umbilical hernia repair. He had a DVT after surgery in the past. He is currently not on any blood thinners. Source of History: patient, parent Onset: 1500 Position: other (right testicle) Quality: other (pain) Timing: other (persistent) Associated Symptoms: No urinary symptoms Note: Pt denies penile lesions/discharge. Review of Systems See HPI for pertinent positives & negatives. A total of 10 systems reviewed and were otherwise negative. Past Medical & Surgical Medical Problems: (1) Acute sinusitis (2) Anxiety (3) Neck pain (4) Panic disorder (5) Seasonal allergies Old medical records were reviewed. Nurse's notes were reviewed and I agree with. Family History Cancer FH: heart disease FH: pulmonary embolism FHx: gallbladder disease Social History Smoking Status: Former Smoker Alcohol Use: occasionally Drug Use: none Marital Status: single Housing Status: lives with family Occupation Status: employed Current/Historical Medications Scheduled Clonazepam (Klonopin), 0.5 MG PO BID Fluticasone Propionate (Nasal) (Flonase Allergy Relief), 1 SPRAY MARIS QAM Metoprolol Succ (Toprol Xl) (Toprol-Xl), 12.5 MG PO HS Paroxetine HCl (Paroxetine), 10 MG PO HS Probiotic Product (Probiotic), 1 CAP PO HS Allergies Coded Allergies: Chlorpheniramine (Unverified Allergy, Severe, anxiety, 04/19/17) Phenylpropanolamine (Unverified Allergy, Severe, anxiety, 04/19/17) Acarides (Mites) (Verified Allergy, Intermediate, "congestion", 04/19/17) Cat Dander (Verified Allergy, Intermediate, "congestion", 04/19/17) Dog Dander (Verified Allergy, Intermediate, "congestion", 04/19/17) Dust (Verified Allergy, Intermediate, "congestion", 04/19/17) Horse Dander (Verified Allergy, Intermediate, "congestion", 04/19/17) Sulfa Antibiotics (Verified Allergy, Unknown, HIVES, 04/19/17) Physical Exam Vital Signs Date Time Temp Pulse Resp B/P (MAP) Pulse Ox O2 Delivery O2 Flow Rate FiO2 04/19/17 18:02 37.0 106 20 140/98 97 Room Air Physical Exam General: Mildly uncomfortable appearing young male in no acute distress, complaining of testicular pain. HEENT: Normal cephalic atraumatic. Pupils are equal round and reactive to light. Extraocular movements are intact. Oropharynx is pink with moist mucous membranes. No swelling of the mouth lips or tongue. Neck: Supple with a midline trachea. No meningeal signs or stiffness, no JVD or bruits. No Stridor. Chest: Clear to auscultation bilaterally. No wheezes or rhonchi. No increased work of breathing. Heart: regular rate and rhythm. Abdomen: Soft nontender, nondistended without rebound guarding or rigidity. : Testicles are symmetrical, nontender to palpation, no hernia felt or appreciated. Extremities: No cyanosis clubbing or edema. No calf tenderness or assymetry Spine/Back. Non tender to palpation. No CVA tenderness Skin: Good turgor without rashes. Neurologic exam: Cranial nerves two through 12 are intact. Motor and sensation are intact and symmetrical throughout. Medical Decision & Procedures ER Provider Diagnostic Interpretation: Radiology results as stated below per my review and radiologist interpretation: TESTICULAR ULTRASOUND CLINICAL HISTORY: Right-sided testicular pain COMPARISON STUDY: No previous studies for comparison. FINDINGS: The left testis measures 28 x 46 x 22 mm. The right testis measures 27 x 46 x 22 mm. No intratesticular masses are visualized. There is no evidence of testicular torsion. There is a 4 mm right-sided epididymal cyst. There are no findings to indicate acute epididymitis. IMPRESSION: 1. No evidence of intratesticular mass 2. No evidence of testicular torsion Electronically signed by: Herman Cain M.D. 04/19/2017 7:04 PM Dictated Date/Time: 04/19/2017 7:02 PM Laboratory Results Test 04/19/17 18:30 Urine Color YELLOW Urine Appearance CLEAR (CLEAR) Urine pH 6.5 (4.5-7.5) Urine Specific [place] 1.012 (1.000-1.030) Urine Protein NEG (NEG) Urine Glucose (UA) NEG (NEG) Urine Ketones NEG (NEG) Urine Occult Blood NEG (NEG) Urine Nitrite NEG (NEG) Urine Bilirubin NEG (NEG) Urine Urobilinogen NEG (NEG) Urine Leukocyte Esterase NEG (NEG) Laboratory studies as stated above per my review. Medications Administered Medications (Trade) Dose Ordered Sig/Alejandra Route Start Time Stop Time Status Last Admin Dose Admin Ketorolac Tromethamine (Toradol Inj) 60 mg NOW STAT IM 04/19/17 18:10 04/19/17 18:13 DC 04/19/17 18:24 60 MG Ondansetron HCl (Zofran Odt) 4 mg ONE ONCE PO 04/19/17 18:15 04/19/17 18:16 DC 04/19/17 18:24 4 MG ED Course 180: Past medical records reviewed. The patient was evaluated in room D1B, and a complete history and physical examination were performed. 1809: Toradol Inj 60 mg IM. 1814: Zofran Odt 4 mg PO. 1913: I reevaluated the patient. He is doing well. On reexamination, there is no evidence of hernia. I also examined him standing. I discussed the results and treatment plan with him. He verbalized agreement of the treatment plan. The patient was discharged home. Medical Decision Differentials include, but are not limited to; testicular torsion, epididymitis , musculoskeletal, infection, hernia. This patient comes in as described above. He was placed in room D1. Here for sudden onset of right testicular pain. There is no trauma although he a lot of heavy lifting yesterday. On exam, his testicles appear symmetrical and there is nothing to suggest torsion or hernia. He is nontender. Urinalysis was negative. Testicular ultrasound was obtained. He was given Toradol 60 mg IM as well as Zofran by mouth. He was reassessed frequently. Ultrasound was unremarkable there is a small epididymal cyst but no evidence of torsion or hernia or epididymitis. I reexamined him and do not find any hernia I also examined him standing. This may be related to heavy lifting hoarse muscular strain. He can use ibuprofen. Return if: increasing pain, redness or warmth or swelling, worsening of symptoms, any new problems or concerns. They're happy with the plan and discharged to home. Medication Reconcilliation Current Medication List: was personally reviewed by me Blood Pressure Screening Patient's blood pressure: Elevated blood pressure Blood pressure disposition: Elevated BP felt to be situational Impression Primary Impression: Right testicular pain Scribe Attestation The scribe's documentation has been prepared under my direction and personally reviewed by me in its entirety. I confirm that the note above accurately reflects all work, treatment, procedures, and medical decision making performed by me. Departure Information Dispostion Home / Self-Care Referrals No Doctor, Assigned (PCP) Forms HOME CARE DOCUMENTATION FORM, IMPORTANT VISIT INFORMATION, WORK / SCHOOL INSTRUCTIONS Patient Instructions My [facility] Additional Instructions Rest. Use ibuprofen 400 mg every 6 hours, take with food Use supportive underwear Return if: Fever, visible swelling, increasing pain, vomiting, worsening of symptoms, any new problems or concerns Follow-up with your doctor this week for recheck
--- NOTE | 2017-04-19 19:05 | DIAGNOSTIC IMAGING REPORT ---
TESTICULAR ULTRASOUND CLINICAL HISTORY: Right-sided testicular pain COMPARISON STUDY: No previous studies for comparison. FINDINGS: The left testis measures 28 x 46 x 22 mm. The right testis measures 27 x 46 x 22 mm. No intratesticular masses are visualized. There is no evidence of testicular torsion. There is a 4 mm right-sided epididymal cyst. There are no findings to indicate acute epididymitis. IMPRESSION: 1. No evidence of intratesticular mass 2. No evidence of testicular torsion Electronically signed by: Herman Cain M.D. 04/19/2017 7:04 PM Dictated Date/Time: 04/19/2017 7:02 PM
== END 2017-04-19 19:29 | disposition home or self-care (01) ==
LOC: C.EDB 17:52 → C.EDD 19:29
DX: N50.811 Right testicular pain (principal); F41.9 Anxiety disorder, unspecified; F41.0 Panic disorder [episodic paroxysmal anxiety]; Z79.899 Other long term (current) drug therapy; Z87.891 Personal history of nicotine dependence; Z88.2 Allergy status to sulfonamides; Z88.8 Allergy status to other drugs, medicaments and biological substances; Z91.09 Other allergy status, other than to drugs and biological substances; Z80.9 Family history of malignant neoplasm, unspecified; Z82.49 Family history of ischemic heart disease and other diseases of the circulatory system; Z83.79 Family history of other diseases of the digestive system

== ENCOUNTER → 2017-04-21 | Outpatient (CLI) | payer OTHER | END | disposition home or self-care (01) | LOC: C.RDSM 13:34 | PROVIDERS: ATTEND Physical Medicine & Rehabilitation Sports Medicine | DX: M25.561 Pain in right knee (principal) ==

== ENCOUNTER 2017-04-25 19:39 | Emergency (ER) | payer OTHER ==
[~2017-04-25] VITALS: Ht 167.6 cm; Wt 83.0 kg
[~2017-04-25 19:39] MED LIST changes: -PARO10TA3 PO
[2017-04-25 19:43] VITALS: TEMP 37; Ht 167.6 cm; Wt 83.0 kg
[2017-04-25] MEDS ORDERED: PARO10TA3 PO (20:20)
[2017-04-25] MEDS ORDERED: KETOROLAC TROMETHAMINE 30 MG/ML VIAL IV STA (20:35)
[2017-04-25] MEDS ORDERED: SODIUM CHLORIDE 0.9% 1000ML 1,000 ML IV STA (20:35)
[2017-04-25 21:04] LABS: BASO % 0.2 %; BASO ABS # 0.02 K/uL (0-0.2); EOS % 0.6 %; EOS ABS # 0.06 K/uL (0-0.5); HEMATOCRIT 47.8 % (42-52); HEMOGLOBIN 17.3 g/dL (14.0-18.0); IG# 0.02 K/uL (0.00-0.02); LYMPH % 8.6 %; LYMPH ABS # 0.93 K/uL (1.2-3.4); MEAN CORPUSCULAR HEMOGLOBIN 31.1 pg (25-34); MEAN CORPUSCULAR HGB CONC 36.2 g/dl (32-36); MEAN PLATELET VOLUME 9.8 fL (7.4-10.4); MONO % 5.4 %; MONO ABS # 0.58 K/uL (0.11-0.59); NEUT ABS # 9.19 K/uL (1.4-6.5); PLATELET COUNT 230 K/uL (130-400); RED CELL DISTRIBUTION WIDTH CV 12.1 % (11.5-14.5); RED CELL DISTRIBUTION WIDTH SD 37.9 fL (36.4-46.3)
[2017-04-25 21:25] LABS: ALBUMIN 4.7 gm/dl (3.4-5.0); CALCIUM 9.4 mg/dl (8.5-10.1); CREATININE 1.05 mg/dl (0.60-1.40); POTASSIUM 3.7 mmol/L (3.5-5.1)
[2017-04-25 21:28] LABS: TOTAL PROTEIN 8.3 gm/dl (6.4-8.2)
[2017-04-25] MEDS ORDERED: GUAI1TAB55 PO (21:30)
[2017-04-25] MEDS ORDERED: SODIUM CHLORIDE 0.9% 500ML 500 ML IV STA (21:49)
[2017-04-25 22:14] VITALS: BP 145/95; PULSE 93; O2SAT 97
--- NOTE | 2017-04-25 22:24 | EMERGENCY ROOM VISIT NOTE ---
History First contact with patient: 20:22 Chief Complaint: FLU LIKE SX Stated Complaint: INCREASED HR AND BP,FLU SYMPTOMS,ABDOMINAL PAIN History of Present Illness The patient is a 31 year old male who presents to the Emergency Room with complaints of abdominal pain and palpitations. The patient states he has been sick for the past 5 days with respiratory illness. He states he was seen by urgent care, diagnosed with bronchitis. The patient states he does have a 9- month-old who did test positive for influenza A, and the patient states he has not been tested, but suspects he may have the flu. The patient states his lopez valdez was recently diagnosed with bronchitis. The patient reports intermittent fever of greater than 100F. He states for the past 2 days, he has noticed that his heart rate increases to approximately 9200 bpm at rest. Earlier today , he woke from a nap, and stretch his body, and felt a pop in his abdomen. He states he feels that the pain is around where he had an umbilical hernia repaired in November 2016. The patient states the pain is worsening. He describes the pain as sharp, and across the front of his abdomen. The patient has been taking Mucinex for his symptoms, and has not noticed any improvement. He does admit to using marijuana almost daily for anxiety symptoms, and states over the past 3 days, he has not been using any marijuana due to the respiratory illness. The patient states he has been feeling more anxious, but has not felt that he is able to properly treat the anxiety without marijuana. He has been taking 500 mg Tylenol once per day for the past 2 days, with only mild improvement in symptoms. The patient denies any sore throat, otalgia, or headache. There is no chest pain, but the patient is experiencing difficulty breathing and wheezing. He has been coughing, and states he does cough up sputum on occasion. Review of Systems A complete 10 point review of systems was reviewed with the patient with pertinent positives and negatives as per history of present illness. All else were negative. Past Medical/Surgical History Medical Problems: (1) Acute sinusitis (2) Anxiety (3) Neck pain (4) Panic disorder (5) Seasonal allergies Family History Cancer FH: heart disease FH: pulmonary embolism FHx: gallbladder disease Social History Smoking Status: Current Every Day Smoker Alcohol Use: occasionally Drug Use: none Marital Status: single Housing Status: lives with family Occupation Status: employed Current/Historical Medications Scheduled Clonazepam (Klonopin), 0.5 MG PO BID Guaifenesin Ext Rel (Mucinex Ext Rel), 600 MG PO Q12 Metoprolol Succ (Toprol Xl) (Toprol-Xl), 12.5 MG PO HS Paroxetine HCl (Paroxetine), 10 MG PO HS Probiotic Product (Probiotic), 1 CAP PO HS Scheduled PRN Fluticasone Propionate (Nasal) (Flonase Allergy Relief), 1 SPRAY MARIS QAM PRN for Nasal Congestion Physical Exam Vital Signs Date Time Temp Pulse Resp B/P (MAP) Pulse Ox O2 Delivery O2 Flow Rate FiO2 04/25/17 22:14 93 14 145/95 97 Room Air 04/25/17 21:38 110 04/25/17 21:35 103 16 145/93 98 Room Air 04/25/17 20:58 Room Air 04/25/17 19:43 37.0 131 20 134/92 96 Room Air Physical Exam VITALS: Vitals are noted on the nurse's note and reviewed by myself. Vital signs stable. GENERAL: This is a 31-year-old white male, ill-appearing, but not toxic, in no acute distress, nondiaphoretic, well-developed well-nourished. SKIN: The skin was without rashes, erythema, edema, or bruising. There is no tenting of the skin. Capillary reflex less than 2 seconds. HEAD: Normocephalic atraumatic. EARS: External auditory canals clear, tympanic membranes pearly garcia without erythema or effusion bilaterally. EYES: Pupils equal round and reactive to light and accommodation. Conjunctivae without injection, sclerae without icterus. Extraocular movements intact. NOSE: Patent, turbinates without inflammation or discharge. No sinus tenderness. MOUTH: Mucous membranes moist. Tonsils are not enlarged. Pharynx without erythema or exudate. Uvula midline. Airway patent. Tongue does not deviate. NECK: Supple without nuchal rigidity. No lymphadenopathy. No thyromegaly. Cervical spine is nontender. No JVD. HEART: Regular rate and rhythm without murmurs gallops or rubs. LUNGS: Clear to auscultation bilaterally without wheezes, rales or rhonchi. No dullness to percussion. No retractions or accessory muscle use. ABDOMEN: Positive bowel sounds x 4. Normal tympanic percussion. Soft, nontender, without masses or organomegaly. No umbilical hernia noted on examination. Braxton sign negative. No guarding or rebound tenderness. MUSCULOSKELETAL: No muscle atrophy, erythema, or edema noted. Full range of motion without joint tenderness in all extremities. No tenderness to palpation. Normal gait. Strength 5/5 throughout. NEURO: Patient was alert and oriented to person place and time. Normal sensation to light and sharp touch. Deep tendon reflexes 2+ throughout. No focal neurological deficits. Medical Decision & Procedures ER Provider Diagnostic Interpretation: CBC was without leukocytosis, anemia, thrombocytopenia. Urinalysis was without obvious signs of infection. There were trace ketones noted. CMP without significant renal, hepatic, electrolytes abnormalities. Lipase was normal. Laboratory Results 04/25/17 20:52 Red Blood Count 5.56, Mean Corpuscular Volume 86.0, Mean Corpuscular Hemoglobin 31.1, Mean Corpuscular Hemoglobin Concent 36.2, Mean Platelet Volume 9.8, Neutrophils (%) (Auto) 85.0, Lymphocytes (%) (Auto) 8.6, Monocytes (%) (Auto) 5.4, Eosinophils (%) (Auto) 0.6, Basophils (%) (Auto) 0.2, Neutrophils # (Auto) 9.19, Lymphocytes # (Auto) 0.93, Monocytes # (Auto) 0.58, Eosinophils # (Auto) 0.06, Basophils # (Auto) 0.02 04/25/17 20:52 Test 04/25/17 20:52 04/25/17 20:55 White Blood Count 10.80 K/uL (4.8-10.8) Red Blood Count 5.56 M/uL (4.7-6.1) Hemoglobin 17.3 g/dL (14.0-18.0) Hematocrit 47.8 % (42-52) Mean Corpuscular Volume 86.0 fL (80-100) Mean Corpuscular Hemoglobin 31.1 pg (25-34) Mean Corpuscular Hemoglobin Concent 36.2 g/dl (32-36) Platelet Count 230 K/uL (130-400) Mean Platelet Volume 9.8 fL (7.4-10.4) Neutrophils (%) (Auto) 85.0 % Lymphocytes (%) (Auto) 8.6 % Monocytes (%) (Auto) 5.4 % Eosinophils (%) (Auto) 0.6 % Basophils (%) (Auto) 0.2 % Neutrophils # (Auto) 9.19 K/uL (1.4-6.5) Lymphocytes # (Auto) 0.93 K/uL (1.2-3.4) Monocytes # (Auto) 0.58 K/uL (0.11-0.59) Eosinophils # (Auto) 0.06 K/uL (0-0.5) Basophils # (Auto) 0.02 K/uL (0-0.2) RDW Standard Deviation 37.9 fL (36.4-46.3) RDW Coefficient of Variation 12.1 % (11.5-14.5) Immature Granulocyte % (Auto) 0.2 % Immature Granulocyte # (Auto) 0.02 K/uL (0.00-0.02) Anion Gap 10.0 mmol/L (3-11) Est Creatinine Clear Calc Drug Dose 104.9 ml/min Estimated GFR () 110.6 Estimated GFR (Non- 95.5 BUN/Creatinine Ratio 10.8 (10-20) Calcium Level 9.4 mg/dl (8.5-10.1) Total Bilirubin 0.8 mg/dl (0.2-1) Aspartate Amino Transf (AST/SGOT) 12 U/L (15-37) Alanine Aminotransferase (ALT/SGPT) 19 U/L (12-78) Alkaline Phosphatase 79 U/L (45-117) Total Protein 8.3 gm/dl (6.4-8.2) Albumin 4.7 gm/dl (3.4-5.0) Globulin 3.6 gm/dl (2.5-4.0) Albumin/Globulin Ratio 1.3 (0.9-2) Lipase 102 U/L (73-393) Urine Color YELLOW Urine Appearance CLEAR (CLEAR) Urine pH 6.5 (4.5-7.5) Urine Specific [place] 1.015 (1.000-1.030) Urine Protein NEG (NEG) Urine Glucose (UA) NEG (NEG) Urine Ketones TRACE (NEG) Urine Occult Blood NEG (NEG) Urine Nitrite NEG (NEG) Urine Bilirubin NEG (NEG) Urine Urobilinogen NEG (NEG) Urine Leukocyte Esterase NEG (NEG) Medications Administered Medications (Trade) Dose Ordered Sig/Alejandra Route Start Time Stop Time Status Last Admin Dose Admin Sodium Chloride 1,000 ml @ 999 mls/hr Q1H1M STAT IV 04/25/17 20:35 04/25/17 21:35 DC 04/25/17 20:51 999 MLS/HR Ketorolac Tromethamine (Toradol Inj) 30 mg NOW STAT IV 04/25/17 20:35 04/25/17 20:38 DC 04/25/17 20:51 30 MG Sodium Chloride 500 ml @ 999 mls/hr Q31M STAT IV 04/25/17 21:49 04/25/17 22:19 DC 04/25/17 21:49 999 MLS/HR ECG Indication: tachycardia Rate (beats per minute): 103 Rhythm: sinus tachycardia Findings: no acute ischemic change, no ectopy ED Course The patient was seen and evaluated as above. IV access obtained, labs drawn. He was given 30 mg Toradol, 1 L normal saline solution through the IV. The patient's heart rate did decrease from 130s to low 100s after the first liter of saline. He apparently told the nursing staff that he feels that his heart continues to race and he needs an EKG and vital signs reassessed. supplies packer did perform an EKG and provided it to me. The patient continues to be concerned about his abdominal pain and tachycardia. He was offered another 500 mL bolus of normal saline solution. The patient states he would like to try that and drink water. His heart rate did drop down into the 80s at one point, and the patient was feeling well. I did reassess the patient once more, and he states he is feeling well enough to go home. I encouraged him to stay home and avoid being out in public as much as possible while he is sick. I discussed discharge instructions, and encouraged him to follow up with his surgeon if he does not experience improvement in the abdominal pain. The patient was discharged home in good condition. Medical Decision This is a 31-year-old male patient presents to the emergency department today with history of influenza and possible bronchitis, complaining of abdominal pain and palpitations for the past few days. The patient normally smokes cannabis, and has not been smoking due to his respiratory illness. I suspect an anxiety component to the patient's palpitations and symptoms, as he smokes cannabis for his anxiety. The patient has not been tested for influenza, however his 9-month-old child did test positive for influenza type A. the patient's tachycardia did improve with multiple examinations, 1500 mL of fluids , and a long discussion at bedside regarding his symptoms. I did offer the patient anxiety medicine, and he declines, stating he has clonazepam at home. The patient's abdominal pain sounds muscular in nature, and I did discuss treatment options for this. He was encouraged to follow up with his surgeon if he is not experiencing improvement in his symptoms when he is feeling better from the influenza. Etiologies such as musculoskeletal, appendicitis, diverticulitis, obstruction, inflammatory bowel disease, renal colic, PUD, biliary pathology, pancreatitis, mesenteric ischemia, aortic pathology, infections, genitourinary, UTI, perforated viscus, influenza, bronchitis, anxiety, tachycardia, dehydration, as well as others were entertained. Medication Reconcilliation Current Medication List: was personally reviewed by me Blood Pressure Screening Patient's blood pressure: Normal blood pressure Impression Primary Impression: Influenza-like symptoms Additional Impressions: Anxiety Abdominal pain Tachycardia Departure Information Dispostion Home / Self-Care Condition GOOD Referrals Rosales Martini M.D. (PCP) Patient Instructions ED Abdominal Pain Unkn Cause, ED Flu, My [facility], Tachycardia Additional Instructions You were seen and evaluated in the emergency department today for a influenza symptoms, tachycardia, and abdominal pain. As discussed, with influenza, you can expect to be sick for 2 weeks or longer. I suspect the tachycardia is related to anxiety and dehydration from being sick and not using cannabis as you normally do for your anxiety. Take clonazepam as directed to help with anxiety symptoms. I suspect the abdominal pain is related to a pulled/strained muscle from stretching, coughing, and feeling ill. If this pain does not improve by the time your influenza symptoms improve, follow-up with your surgeon. Take the prescription cough medicine from your PCP as directed. For your sore throat, you may use a 1:1 mixture of liquid Benadryl and liquid Maalox. Gargle and spit this mixture. It will help to soothe the throat and provide some relief. Drink warm tea with honey and lemon, as this will also help to soothe the throat. Gargle with salt water frequently. As discussed, you should take OTC Mucinex and/or Sudafed for your symptoms. Please do not exceed the recommended daily dosages. Ibuprofen(Motrin, Advil) may be used for fever or pain. Use 600mg every six hours as needed. Take with food. Avoid using more than 2400mg in a 24 hour period. Do not use 2400mg per day for more than three consecutive days without physician direction. Prolonged inappropriate use can lead to stomach upset or ulcers. You may take Naproxen 1-2 tablets twice daily in place of ibuprofen. This medication will help with the swelling in your sinuses. (AND/OR) Acetaminophen(Tylenol) may be used for fever or pain. Use 1000mg every six hours as needed. Avoid using more than 3000mg in a 24 hour period. For congestion, you may use Flonase OTC. You may want to consider zinc, echinacea, and vitamin C to help boost your immunity. Please get plenty of rest and drink plenty of fluids. Please return or follow-up with your PCP in 1 week if you are not experiencing any improvement in your symptoms. Do not return to work until you are fever free for 24 hours without anti- pyretics. Return to the emergency department for coughing up blood, difficulty breathing, chest pain, worsening symptoms, or for other concerns. Problem Qualifiers Additional Impressions: Abdominal pain Abdominal location: generalized Qualified Codes: R10.84 - Generalized abdominal pain
== END 2017-04-25 23:06 | disposition home or self-care (01) ==
LOC: C.EDB 19:41 → C.EDC 23:06
DX: J11.1 Influenza due to unidentified influenza virus with other respiratory manifestations (principal); F41.9 Anxiety disorder, unspecified; R10.9 Unspecified abdominal pain; R00.0 Tachycardia, unspecified; F17.200 Nicotine dependence, unspecified, uncomplicated; Z79.899 Other long term (current) drug therapy; Z80.9 Family history of malignant neoplasm, unspecified; Z82.49 Family history of ischemic heart disease and other diseases of the circulatory system; Z83.79 Family history of other diseases of the digestive system

== ENCOUNTER → 2017-06-17 | Outpatient (CLI) | payer OTHER ==
[~2017-06-17] MED LIST changes: +GUAI1TAB55 PO; +PARO10TA3 PO
--- NOTE | 2017-06-17 14:42 | DIAGNOSTIC IMAGING REPORT ---
ABDOMEN FOR HERNIA CLINICAL HISTORY: K43.6 Incarcerated epigastric [id number] Abdominal pains/p epig TECHNIQUE: Ultrasound COMPARISON STUDY: 03/06/2017 FINDINGS: Hernia repair site appears to be intact. No evidence for recurrent hernia. Unremarkable post procedural echogenicity of the subcutaneous tissues. IMPRESSION: No evidence for recurrent hernia. Unremarkable soft tissue postoperative change. The above report was generated using voice recognition software. It may contain grammatical, syntax or spelling errors. Electronically signed by: John Herndon M.D. 06/17/2017 2:41 PM Dictated Date/Time: 06/17/2017 2:39 PM
== END | disposition home or self-care (01) ==
LOC: C.ULTR 14:04
PROVIDERS: ATTEND Surgery
DX: K43.6 Other and unspecified ventral hernia with obstruction, without gangrene (principal); R10.9 Unspecified abdominal pain

== ENCOUNTER 2017-07-17 17:21 | Emergency (ER) | payer OTHER ==
[~2017-07-17] VITALS: Ht 172.7 cm; Wt 85.0 kg
[2017-07-17 17:31] VITALS: TEMP 36.8; Ht 172.7 cm; Wt 85.0 kg
[2017-07-17 18:03] LABS: BASO % 0.5 %; BASO ABS # 0.04 K/uL (0-0.2); EOS % 1.3 %; EOS ABS # 0.11 K/uL (0-0.5); HEMATOCRIT 43.5 % (42-52); HEMOGLOBIN 15.7 g/dL (14.0-18.0); IG# 0.02 K/uL (0.00-0.02); LYMPH % 31.6 %; LYMPH ABS # 2.63 K/uL (1.2-3.4); MEAN CELL VOLUME 86.1 fL (80-100); MEAN CORPUSCULAR HEMOGLOBIN 31.1 pg (25-34); MEAN CORPUSCULAR HGB CONC 36.1 g/dl (32-36); MEAN PLATELET VOLUME 9.4 fL (7.4-10.4); MONO % 6.1 %; MONO ABS # 0.51 K/uL (0.11-0.59); NEUT % 60.3 %; NEUT ABS # 5.02 K/uL (1.4-6.5); PLATELET COUNT 217 K/uL (130-400); RED CELL DISTRIBUTION WIDTH CV 12.5 % (11.5-14.5); RED CELL DISTRIBUTION WIDTH SD 39.3 fL (36.4-46.3); WHITE BLOOD COUNT 8.33 K/uL (4.8-10.8)
--- NOTE | 2017-07-17 18:18 | DIAGNOSTIC IMAGING REPORT ---
CHEST ONE VIEW PORTABLE CLINICAL HISTORY: 32 years-old Male presenting with Chest Pain. TECHNIQUE: Portable upright AP view of the chest was obtained. COMPARISON: 02/01/2017. FINDINGS: Cardiomediastinal silhouette normal. Lungs and pleural spaces clear. Osseous structures normal. Upper abdomen normal. IMPRESSION: 1. No acute cardiopulmonary disease. Electronically signed by: Nilo Pelayo M.D. 07/17/2017 6:17 PM Dictated Date/Time: 07/17/2017 6:17 PM
[2017-07-17] MEDS ORDERED: CLON1TAB3 PO (18:22)
[2017-07-17] MEDS ORDERED: PXL/10 PO (18:22)
[2017-07-17] MEDS ORDERED: TPRSR/25 PO (18:22)
[2017-07-17] MEDS ORDERED: VNTHFA/IN INH (18:22)
[2017-07-17] MEDS ORDERED: ABL10 PO (18:23)
[2017-07-17 18:28] LABS: BLOOD UREA NITROGEN 10 mg/dl (7-18); CALCIUM 9.1 mg/dl (8.5-10.1); CARBON DIOXIDE 24 mmol/L (21-32); CREATININE 0.97 mg/dl (0.60-1.40); GLUCOSE 90 mg/dl (70-99); POTASSIUM 3.6 mmol/L (3.5-5.1); SODIUM 137 mmol/L (136-145)
[2017-07-17 18:32] LABS: CKMB 0.9 ng/ml (0.5-3.6)
[2017-07-17] MEDS ORDERED: KETOROLAC TROMETHAMINE 30 MG/ML VIAL IV STA (19:43)
[2017-07-17 21:01] VITALS: BP 137/84; PULSE 78; O2SAT 99
--- NOTE | 2017-07-17 22:43 | EMERGENCY ROOM VISIT NOTE ---
History Report prepared by Marcelo: Romeo Lafleur Under the Supervision of: Dr. Jayson Guzman D.O. First contact with patient: 17:39 Chief Complaint: CHEST PAIN Stated Complaint: SEVERE CHEST PAIN, HEADACHE Nursing Triage Summary: Patient ambulatory to triage with an upright and steady gait, states "I started having a shooting and spasm like pain throught the middle of my chest around 1400 today. I checked my BP as the pain persisted for about 30 minutes. I kept getting the pains on and off while getting ready for work. I kept trying to move around a lot while at work and the pains were getting harder and lasting for longer. I called the telenurse and she told me to come here. I have been going through a lot of med changes as my mental diagnosis has changed. I started Abilify 5mg last night for the first time. I also have a headache. I think it's from tension." History of Present Illness The patient is a 32 year old male who presents to the Emergency Room with complaints of intermittent chest pain that started around 2 and a half hours ago. He states that initially the pain was a sharp, stabbing, and shooting discomfort. He states that the pain is in the middle of his chest. The patient notes that the pain then started to develop into a dull and squeezing pain that varied in intensity and duration. He says that nothing makes the pain better or worse. The patient notes that he has a bit of a headache. He denies any notable shortness of breath, arm pain, jaw pain, abdominal pain, nausea, vomiting, or rashes. He notes that he has a history of hypertension, and is on Metoprolol. He also notes a history of palpitations. The patient is a former smoker of cigarettes, but does smoke marijuana. Patient denies swelling of calves, recent trips, history of immobilization or recent surgery, hemoptysis, or history of malignancy. The patient states that he has a history of a provoked DVT in his leg after surgery. His father has a history of DVT's. Source of History: patient Onset: 2 and a half hours ago Position: chest Quality: sharp, stabbing, dull Timing: intermittent Associated Symptoms: + headache, No SOB (notable), No nausea, No vomiting, No abdominal pain, No rash Note: Denies arm or jaw pain. Review of Systems See HPI for pertinent positives & negatives. A total of 10 systems reviewed and were otherwise negative. Past Medical & Surgical Medical Problems: (1) Acute sinusitis (2) Anxiety (3) Neck pain (4) Panic disorder (5) Seasonal allergies Family History Cancer DVT FH: heart disease FH: pulmonary embolism FHx: gallbladder disease Social History Smoking Status: Former Smoker Alcohol Use: occasionally Drug Use: marijuana Marital Status: single Housing Status: lives with family Occupation Status: employed Current/Historical Medications Scheduled Aripiprazole (Abilify), 5 MG PO HS Clonazepam (Klonopin), 0.5 MG PO BID Metoprolol Succinate (Metoprolol Succinate ER), 12.5 MG PO HS Paroxetine (Paroxetine HCl), 10 MG PO HS Probiotic Product (Probiotic), 1 CAP PO HS Scheduled PRN Albuterol Hfa (Ventolin Hfa), 1 PUFF INH QID PRN for Wheezing Clonazepam (Klonopin), 0.25 MG PO DAILY PRN for Anxiety Allergies Coded Allergies: Chlorpheniramine (Unverified Allergy, Severe, anxiety, 07/17/17) Phenylpropanolamine (Unverified Allergy, Severe, anxiety, 07/17/17) Acarides (Mites) (Verified Allergy, Intermediate, "congestion", 07/17/17) Cat Dander (Verified Allergy, Intermediate, "congestion", 07/17/17) Dog Dander (Verified Allergy, Intermediate, "congestion", 07/17/17) Dust (Verified Allergy, Intermediate, "congestion", 07/17/17) Horse Dander (Verified Allergy, Intermediate, "congestion", 07/17/17) Sulfa Antibiotics (Verified Allergy, Unknown, HIVES, 07/17/17) Physical Exam Vital Signs Date Time Temp Pulse Resp B/P (MAP) Pulse Ox O2 Delivery O2 Flow Rate FiO2 07/17/17 21:01 78 20 137/84 99 07/17/17 18:17 81 07/17/17 18:14 82 18 121/77 97 Room Air 07/17/17 17:31 36.8 87 18 135/78 98 Room Air 07/17/17 17:31 98 Room Air Physical Exam GENERAL: Sitting up in bed, alert, well appearing, well nourished, no distress, non-toxic EYE EXAM: normal conjunctiva. OROPHARYNX: no exudate, no erythema, lips, buccal mucosa, and tongue normal and mucous membranes are moist NECK: supple, no nuchal rigidity, no adenopathy, non-tender LUNGS: Clear to auscultation. Normal chest wall mechanics HEART: no murmurs, S1 normal and S2 normal ABDOMEN: abdomen soft, non-tender, normo-active bowel sounds, no masses, no rebound or guarding. BACK: Back is symmetrical on inspection and there is no deformity, no midline tenderness, no CVA tenderness. SKIN: no rashes and no bruising UPPER EXTREMITIES: Upper extremities are grossly normal. Radial pulses equal bilaterally. LOWER EXTREMITIES: Calves are equal bilaterally. NEURO EXAM: Normal sensorium, cranial nerves II-XII grossly intact, normal speech, no gross weakness of arms, no gross weakness of legs. Medical Decision & Procedures ER Provider Diagnostic Interpretation: X-ray results as stated below per my review and the radiologist's interpretation : CHEST ONE VIEW PORTABLE CLINICAL HISTORY: 32 years-old Male presenting with Chest Pain. TECHNIQUE: Portable upright AP view of the chest was obtained. COMPARISON: 02/01/2017. FINDINGS: Cardiomediastinal silhouette normal. Lungs and pleural spaces clear. Osseous structures normal. Upper abdomen normal. IMPRESSION: 1. No acute cardiopulmonary disease. Electronically signed by: Nilo Pelayo M.D. 07/17/2017 6:17 PM Dictated Date/Time: 07/17/2017 6:17 PM Laboratory Results 07/17/17 17:55 Red Blood Count 5.05, Mean Corpuscular Volume 86.1, Mean Corpuscular Hemoglobin 31.1, Mean Corpuscular Hemoglobin Concent 36.1, Mean Platelet Volume 9.4, Neutrophils (%) (Auto) 60.3, Lymphocytes (%) (Auto) 31.6, Monocytes (%) (Auto) 6.1, Eosinophils (%) (Auto) 1.3, Basophils (%) (Auto) 0.5, Neutrophils # (Auto) 5.02, Lymphocytes # (Auto) 2.63, Monocytes # (Auto) 0.51, Eosinophils # (Auto) 0.11, Basophils # (Auto) 0.04 07/17/17 17:55 Test 07/17/17 17:55 07/17/17 20:07 White Blood Count 8.33 K/uL (4.8-10.8) Red Blood Count 5.05 M/uL (4.7-6.1) Hemoglobin 15.7 g/dL (14.0-18.0) Hematocrit 43.5 % (42-52) Mean Corpuscular Volume 86.1 fL (80-100) Mean Corpuscular Hemoglobin 31.1 pg (25-34) Mean Corpuscular Hemoglobin Concent 36.1 g/dl (32-36) Platelet Count 217 K/uL (130-400) Mean Platelet Volume 9.4 fL (7.4-10.4) Neutrophils (%) (Auto) 60.3 % Lymphocytes (%) (Auto) 31.6 % Monocytes (%) (Auto) 6.1 % Eosinophils (%) (Auto) 1.3 % Basophils (%) (Auto) 0.5 % Neutrophils # (Auto) 5.02 K/uL (1.4-6.5) Lymphocytes # (Auto) 2.63 K/uL (1.2-3.4) Monocytes # (Auto) 0.51 K/uL (0.11-0.59) Eosinophils # (Auto) 0.11 K/uL (0-0.5) Basophils # (Auto) 0.04 K/uL (0-0.2) RDW Standard Deviation 39.3 fL (36.4-46.3) RDW Coefficient of Variation 12.5 % (11.5-14.5) Immature Granulocyte % (Auto) 0.2 % Immature Granulocyte # (Auto) 0.02 K/uL (0.00-0.02) D-Dimer 420 ug/L FEU (0-500) Anion Gap 10.0 mmol/L (3-11) Est Creatinine Clear Calc Drug Dose 118.2 ml/min Estimated GFR () 120.9 Estimated GFR (Non- 104.3 BUN/Creatinine Ratio 9.8 (10-20) Calcium Level 9.1 mg/dl (8.5-10.1) Total Creatine Kinase 100 U/L (39-308) Creatine Kinase MB 0.9 ng/ml (0.5-3.6) Creatine Kinase MB Ratio 0.9 (0-3.0) Troponin I < 0.015 ng/ml (0-0.045) Laboratory results per my review. ECG Per My Interpretation Indication: chest pain Rate (beats per minute): 78 Rhythm: sinus rhythm Findings: other (normal axis, nonspecific ST wave changes in lead 3) ED Course ED COURSE: Vital signs were reviewed and showed normal vitals. The patients medical record was reviewed The above diagnostic studies were performed and reviewed. ED treatments and interventions as stated above. 1739: The patient was evaluated in room C11B. A complete history and physical examination was performed. 1942: Toradol Inj 30 mg IV. 2048: Upon reevaluation, the patient is resting comfortably.I discussed my findings with the patient and he understands and agrees with the treatment plan. Based on the patients age, coexisting illnesses, exam and lab findings the decision to treat as an outpatient was made. The patient remained stable while under my care. The patient appeared well at the time of discharge. Medical Decision Differential diagnoses includes but is not limited to acute coronary syndrome, myocardial infarction, pericarditis, pulmonary embolus, aortic dissection, pneumonia, pneumothorax, musculoskeletal, shingles, esophageal. Patient is a 32-year-old male with past medical history of hypertension and palpitations that presents for chest pain. He has no PE risk factors. No other cardiac risk factors with the exception of hypertension. EKG was unremarkable. IV was established and CBC along with BMP and troponin was negative 2. D-dimer was negative. Chest pain started about 4 hours prior to arrival. Chest x-ray was unremarkable. Patient was given Toradol and had improvement of his symptoms. I do favor that this is likely musculoskeletal but cannot be certain at this time. He was updated and discharged to follow-up with PCP as an outpatient. Discussed with Pt concerning signs and symptoms to watch out for. Pt was instructed to follow up with their PCP and discussed with the patient their option to return to the ED at anytime for persistent or worsening symptoms. The appropriate anticipatory guidance and out-patient management, including indications for return to the emergency department, were explained at length to the patient and understood. Medication Reconcilliation Current Medication List: was personally reviewed by me Blood Pressure Screening Patient's blood pressure: Normal blood pressure Impression Primary Impression: Chest pain Scribe Attestation The scribe's documentation has been prepared under my direction and personally reviewed by me in its entirety. I confirm that the note above accurately reflects all work, treatment, procedures, and medical decision making performed by me. Departure Information Dispostion Home / Self-Care Referrals Rosales Martini M.D. (PCP) Forms HOME CARE DOCUMENTATION FORM, IMPORTANT VISIT INFORMATION Patient Instructions Chest Pain - [facility], [facility] Additional Instructions Please follow up with your primary care doctor with in the next 24 hours. Any worsening of your symptoms, please return to the ED immediately. This includes any fevers greater than 100.4, worsening pain, chest pain, shortness breath, persistent nausea, vomiting, unable to eat or drink, or any other concerning signs or symptoms from your standpoint. Problem Qualifiers Primary Impression: Chest pain Chest pain type: unspecified Qualified Codes: R07.9 - Chest pain, unspecified
== END 2017-07-17 21:02 | disposition home or self-care (01) ==
LOC: C.EDB 17:23 → C.EDC 20:02
DX: R07.9 Chest pain, unspecified (principal); I10 Essential (primary) hypertension; Z87.891 Personal history of nicotine dependence; F12.90 Cannabis use, unspecified, uncomplicated; Z86.718 Personal history of other venous thrombosis and embolism; F41.0 Panic disorder [episodic paroxysmal anxiety]; Z80.9 Family history of malignant neoplasm, unspecified; Z79.899 Other long term (current) drug therapy; Z88.2 Allergy status to sulfonamides; Z88.5 Allergy status to narcotic agent

== ENCOUNTER 2017-08-07 20:21 | Emergency (ER) | payer OTHER ==
[~2017-08-07] VITALS: Ht 167.6 cm; Wt 87.0 kg
[~2017-08-07 20:21] MED LIST changes: +ABL10 PO; -FLUT0.15 NAE; -GUAI1TAB55 PO; -METO25TA3 PO; -PARO10TA3 PO; +PXL/10 PO; +TPRSR/25 PO; +VNTHFA/IN INH
[2017-08-07 20:24] VITALS: TEMP 36.6; Ht 167.6 cm; Wt 87.0 kg
--- NOTE | 2017-08-07 20:41 | EMERGENCY ROOM VISIT NOTE ---
History Report prepared by Marcelo: Romeo Lafleur Under the Supervision of: Dr. Nabila Kirby D.O. First contact with patient: 20:27 Chief Complaint: TACHYCARDIA Stated Complaint: HEART PALPITATIONS/RACING, DIZZY, FAINT, TIRED History of Present Illness The patient is a 32 year old male who presents to the Emergency Room with complaints of episodes of tachycardia today. He states that he has bipolar, and had his medication changed from Abilify to Seroquel 6 days ago. 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 The patient adds that he felt faint, and had heart palpitations, which include heart racing and skipping. He notes that he has felt out of it, and dizzy. He says that he felt like he was going to the floor at times. The patient states that he has a history of benign PVCs, and this felt similar to that. He notes that his daughter has a double ear infection, but he denies any runny nose, stuffy nose, or head pressure. The patient also denies any urinary symptoms, diarrhea or vomiting. He notes that he has had some abdominal pain recently. He states that he takes Metoprolol daily. He says that he has been drinking fine, but at times he does not eat so well, but he did eat okay today. The patient says that he currently feels okay while laying in bed. He denies any recent travels. Source of History: patient Onset: Today Position: other (heart) Symptom Intensity: heart skipping and racing Quality: other (tachycardia) Timing: other (episodes) Associated Symptoms: + nausea, + abdominal pain, + fatigue, No LOC, No vomiting, No diarrhea, No urinary symptoms Note: Pierce faint. Dizzy. Denies runny nose, stuffy nose, head pressure. Review of Systems See HPI for pertinent positives & negatives. A total of 10 systems reviewed and were otherwise negative. Past Medical & Surgical Medical Problems: (1) Acute sinusitis (2) Anxiety (3) Neck pain (4) Panic disorder (5) Seasonal allergies Family History Cancer DVT FH: heart disease FH: pulmonary embolism FHx: gallbladder disease Social History Smoking Status: Former Smoker Alcohol Use: occasionally Drug Use: marijuana Marital Status: single Housing Status: lives with family Occupation Status: employed Current/Historical Medications Scheduled Clonazepam (Klonopin), 0.5 MG PO PM Metoprolol Succinate (Metoprolol Succinate ER), 12.5 MG PO HS Paroxetine (Paroxetine HCl), 10 MG PO HS Probiotic Product (Probiotic), 1 CAP PO HS Quetiapine Fumarate (Quetiapine Fumarate), 25 MG PO HS Scheduled PRN Albuterol Hfa (Ventolin Hfa), 1 PUFF INH QID PRN for Wheezing Clonazepam (Klonopin), 0.25 MG PO QAM PRN for Anxiety Allergies Coded Allergies: Chlorpheniramine (Unverified Allergy, Severe, anxiety, 07/17/17) Phenylpropanolamine (Unverified Allergy, Severe, anxiety, 07/17/17) Acarides (Mites) (Verified Allergy, Intermediate, "congestion", 07/17/17) Cat Dander (Verified Allergy, Intermediate, "congestion", 07/17/17) Dog Dander (Verified Allergy, Intermediate, "congestion", 07/17/17) Dust (Verified Allergy, Intermediate, "congestion", 07/17/17) Horse Dander (Verified Allergy, Intermediate, "congestion", 07/17/17) Sulfa Antibiotics (Verified Allergy, Unknown, HIVES, 07/17/17) Physical Exam Vital Signs Date Time Temp Pulse Resp B/P (MAP) Pulse Ox O2 Delivery O2 Flow Rate FiO2 08/07/17 23:48 105 20 124/97 97 Room Air 08/07/17 21:10 90 08/07/17 20:45 88 16 118/78 97 Room Air 90 137/90 91 135/91 08/07/17 20:40 Room Air 08/07/17 20:24 36.6 108 18 157/97 96 Room Air Physical Exam GENERAL: alert, well appearing, well nourished, no distress, non-toxic, anxious EYE EXAM: normal conjunctiva, PERRL and EOM's grossly intact OROPHARYNX: no exudate, no erythema, lips, buccal mucosa, and tongue normal and mucous membranes are moist NECK: supple, no nuchal rigidity, no adenopathy, non-tender LUNGS: Clear to auscultation. Normal chest wall mechanics HEART: no murmurs, S1 normal and S2 normal ABDOMEN: abdomen soft, non-tender, normo-active bowel sounds, no masses, no rebound or guarding. BACK: Back is symmetrical on inspection and there is no deformity, no midline tenderness, no CVA tenderness. SKIN: no rashes and no bruising UPPER EXTREMITIES: upper extremities are grossly normal. LOWER EXTREMITIES: No pitting edema. NEURO EXAM: Normal sensorium, cranial nerves II-XII grossly intact, normal speech, no gross weakness of arms, no gross weakness of legs. Medical Decision & Procedures ER Provider Diagnostic Interpretation: X-ray results have been interpreted by the radiologist and reviewed by me. CHEST ONE VIEW PORTABLE CLINICAL HISTORY: palpitations cardiac arrhythmia COMPARISON STUDY: 07/17/2017 FINDINGS: The bones soft tissues and hemidiaphragms are normal. The cardiomediastinal silhouette is normal. The lungs are clear. The pulmonary vasculature is normal. IMPRESSION: Negative chest. The above report was generated using voice recognition software. It may contain grammatical, syntax or spelling errors. Electronically signed by: John Herndon M.D. 08/07/2017 8:57 PM Dictated Date/Time: 08/07/2017 8:57 PM Laboratory Results 08/07/17 20:40 Red Blood Count 5.11, Mean Corpuscular Volume 87.1, Mean Corpuscular Hemoglobin 30.7, Mean Corpuscular Hemoglobin Concent 35.3, Mean Platelet Volume 9.5, Neutrophils (%) (Auto) 70.9, Lymphocytes (%) (Auto) 22.0, Monocytes (%) (Auto) 5.6, Eosinophils (%) (Auto) 0.9, Basophils (%) (Auto) 0.3, Neutrophils # (Auto) 8.46, Lymphocytes # (Auto) 2.62, Monocytes # (Auto) 0.67, Eosinophils # (Auto) 0.11, Basophils # (Auto) 0.04 08/07/17 20:40 Test 08/07/17 20:40 08/07/17 21:15 White Blood Count 11.93 K/uL (4.8-10.8) Red Blood Count 5.11 M/uL (4.7-6.1) Hemoglobin 15.7 g/dL (14.0-18.0) Hematocrit 44.5 % (42-52) Mean Corpuscular Volume 87.1 fL (80-100) Mean Corpuscular Hemoglobin 30.7 pg (25-34) Mean Corpuscular Hemoglobin Concent 35.3 g/dl (32-36) Platelet Count 232 K/uL (130-400) Mean Platelet Volume 9.5 fL (7.4-10.4) Neutrophils (%) (Auto) 70.9 % Lymphocytes (%) (Auto) 22.0 % Monocytes (%) (Auto) 5.6 % Eosinophils (%) (Auto) 0.9 % Basophils (%) (Auto) 0.3 % Neutrophils # (Auto) 8.46 K/uL (1.4-6.5) Lymphocytes # (Auto) 2.62 K/uL (1.2-3.4) Monocytes # (Auto) 0.67 K/uL (0.11-0.59) Eosinophils # (Auto) 0.11 K/uL (0-0.5) Basophils # (Auto) 0.04 K/uL (0-0.2) RDW Standard Deviation 39.9 fL (36.4-46.3) RDW Coefficient of Variation 12.4 % (11.5-14.5) Immature Granulocyte % (Auto) 0.3 % Immature Granulocyte # (Auto) 0.03 K/uL (0.00-0.02) Prothrombin Time 10.6 SECONDS (9.0-12.0) Prothromb Time International Ratio 1.0 (0.9-1.1) D-Dimer 480 ug/L FEU (0-500) Anion Gap 5.0 mmol/L (3-11) Est Creatinine Clear Calc Drug Dose 99.7 ml/min Estimated GFR () 101.6 Estimated GFR (Non- 87.7 BUN/Creatinine Ratio 11.2 (10-20) Calcium Level 9.1 mg/dl (8.5-10.1) Phosphorus Level 3.4 mg/dl (2.5-4.9) Magnesium Level 2.0 mg/dl (1.8-2.4) Total Bilirubin 0.4 mg/dl (0.2-1) Aspartate Amino Transf (AST/SGOT) 15 U/L (15-37) Alanine Aminotransferase (ALT/SGPT) 26 U/L (12-78) Alkaline Phosphatase 72 U/L (45-117) Troponin I < 0.015 ng/ml (0-0.045) Pro-B-Type Natriuretic Peptide 19 pg/ml (0-450) Total Protein 7.9 gm/dl (6.4-8.2) Albumin 4.3 gm/dl (3.4-5.0) Globulin 3.6 gm/dl (2.5-4.0) Albumin/Globulin Ratio 1.2 (0.9-2) Thyroid Stimulating Hormone (TSH) 1.210 uIu/ml (0.300-4.500) Urine Opiates Screen NEG (NEG) Urine Methadone, Qualitative NEG (NEG) Urine Barbiturates NEG (NEG) Urine Phencyclidine (PCP) Level NEG (NEG) Ur Amphetamine/Methamphetamine NEG (NEG) MDMA (Ecstasy) Screen NEG (NEG) Urine Benzodiazepines Screen NEG (NEG) Urine Cocaine Metabolite NEG (NEG) Urine Marijuana (THC) POS (NEG) Laboratory results per my review. Medications Administered Medications (Trade) Dose Ordered Sig/Alejandra Route Start Time Stop Time Status Last Admin Dose Admin Prochlorperazine Edisylate (Compazine Inj) 5 mg NOW STAT IV 08/07/17 21:49 08/07/17 21:51 DC 08/07/17 22:08 5 MG Diphenhydramine HCl (Benadryl Inj) 25 mg NOW STAT IV 08/07/17 21:49 08/07/17 21:51 DC 08/07/17 22:08 25 MG Ketorolac Tromethamine (Toradol Inj) 15 mg NOW STAT IV 08/07/17 22:33 08/07/17 22:34 DC 08/07/17 23:48 15 MG ECG Per My Interpretation Indication: palpitations Rate (beats per minute): 100 Rhythm: normal sinus Findings: no acute ischemic change, no ectopy, other (normal axis, normal intervals) ED Course 2030: The patient was evaluated in room B11B. A complete history and physical exam was performed. 2148: Benadryl Inj 25 mg IV, Compazine Inj 5 mg IV. 2224: Upon reevaluation, the patient had another episode where his heart rate went up and then went back down in the room. He only had 2 PAC's on the monitor. I discussed the findings and the treatment plan with the patient. He verbalizes agreement and understanding. He was discharged home. Medical Decision Differential diagnosis includes etiologies such as premature contractions, electrolyte abnormality, cardiac dysrhythmia, thyroid dysfunction, pulmonary embolism, infection, gastrointestinal, as well as others were entertained. Patient well-appearing here despite complaints. 2 PACs noted on telemetry, however no other ectopy or dysrhythmia. Labs otherwise reassuring. Patient with no risk factors for DVT/PE and d-dimer negative. No other significant cardiac history and patient states he has had prior cardiac evaluation which were unremarkable evaluating for his PACs/PVCs. I do not suspect occult infectious etiology, patient does not appear to have thyroid storm, patient with no risk factors for ACS. I feel patient is more likely having an adverse side effect to the recent change in his medications. Patient appears well- hydrated and was tolerating p.o. here at bedside. Discussed with patient follow -up with regarding his medications possible need for change or adjustment. Discussed not acutely stopping any of his medications as this could precipitate other withdrawal reactions. Discussed staying well-hydrated, avoidance of caffeine, symptoms to watch and return for, he verbalized understanding was agreeable to plan. Medication Reconcilliation Current Medication List: was personally reviewed by me Blood Pressure Screening Patient's blood pressure: Elevated blood pressure Blood pressure disposition: Elevated BP felt to be situational Impression Primary Impression: Palpitations Scribe Attestation The scribe's documentation has been prepared under my direction and personally reviewed by me in its entirety. I confirm that the note above accurately reflects all work, treatment, procedures, and medical decision making performed by me. Departure Information Dispostion Home / Self-Care Referrals Rosales Martini M.D. (PCP) Patient Instructions My [facility] Additional Instructions Please discuss her new medication with your prescribing doctor. Your symptoms could be a potential side effect of your Seroquel. Please stay well-hydrated, avoid any caffeine consumption, and eat at regular intervals. If you have any new or concerning symptoms, including chest pain, recurrent palpitations, dizziness, vision changes, headaches, passing out, fevers, vomiting, or other new concerns, please return the emergency room.
[2017-08-07 20:48] LABS: BASO % 0.3 %; BASO ABS # 0.04 K/uL (0-0.2); EOS % 0.9 %; EOS ABS # 0.11 K/uL (0-0.5); HEMATOCRIT 44.5 % (42-52); HEMOGLOBIN 15.7 g/dL (14.0-18.0); IG# 0.03 K/uL (0.00-0.02); LYMPH ABS # 2.62 K/uL (1.2-3.4); MEAN CELL VOLUME 87.1 fL (80-100); MEAN CORPUSCULAR HEMOGLOBIN 30.7 pg (25-34); MEAN CORPUSCULAR HGB CONC 35.3 g/dl (32-36); MEAN PLATELET VOLUME 9.5 fL (7.4-10.4); MONO % 5.6 %; MONO ABS # 0.67 K/uL (0.11-0.59); NEUT % 70.9 %; NEUT ABS # 8.46 K/uL (1.4-6.5); PLATELET COUNT 232 K/uL (130-400); RED CELL DISTRIBUTION WIDTH CV 12.4 % (11.5-14.5); RED CELL DISTRIBUTION WIDTH SD 39.9 fL (36.4-46.3); WHITE BLOOD COUNT 11.93 K/uL (4.8-10.8)
--- NOTE | 2017-08-07 20:58 | DIAGNOSTIC IMAGING REPORT ---
CHEST ONE VIEW PORTABLE CLINICAL HISTORY: palpitations cardiac arrhythmia COMPARISON STUDY: 07/17/2017 FINDINGS: The bones soft tissues and hemidiaphragms are normal. The cardiomediastinal silhouette is normal. The lungs are clear. The pulmonary vasculature is normal. IMPRESSION: Negative chest. The above report was generated using voice recognition software. It may contain grammatical, syntax or spelling errors. Electronically signed by: John Herndon M.D. 08/07/2017 8:57 PM Dictated Date/Time: 08/07/2017 8:57 PM
[2017-08-07 21:06] LABS: ALBUMIN 4.3 gm/dl (3.4-5.0); ALT/SGPT 26 U/L (12-78); AST/SGOT 15 U/L (15-37); BLOOD UREA NITROGEN 13 mg/dl (7-18); CALCIUM 9.1 mg/dl (8.5-10.1); CARBON DIOXIDE 28 mmol/L (21-32); CREATININE 1.12 mg/dl (0.60-1.40); GLUCOSE 90 mg/dl (70-99); POTASSIUM 3.5 mmol/L (3.5-5.1); SODIUM 138 mmol/L (136-145)
[2017-08-07 21:17] LABS: ALKALINE PHOSPHATASE 72 U/L (45-117); PHOSPHORUS 3.4 mg/dl (2.5-4.9); TOTAL PROTEIN 7.9 gm/dl (6.4-8.2)
[2017-08-07] MEDS ORDERED: SRQ25 PO (21:41)
[2017-08-07] MEDS ORDERED: PROCHLORPERAZINE 5 MG/ML 2 ML VIAL IV STA (21:49)
[2017-08-07] MEDS ORDERED: DiphenhydrAMINE HCL 50 MG/ML VIAL IV STA (21:49)
[2017-08-07] MEDS ORDERED: KETOROLAC TROMETHAMINE 30 MG/ML VIAL IV STA (22:33)
[2017-08-07 23:48] VITALS: BP 124/97; PULSE 105; O2SAT 97
== END 2017-08-07 23:55 | disposition home or self-care (01) ==
LOC: C.EDB 20:22
DX: R00.2 Palpitations (principal); F31.9 Bipolar disorder, unspecified; F41.0 Panic disorder [episodic paroxysmal anxiety]; Z80.9 Family history of malignant neoplasm, unspecified; Z87.891 Personal history of nicotine dependence; F12.90 Cannabis use, unspecified, uncomplicated; Z79.899 Other long term (current) drug therapy; Z88.2 Allergy status to sulfonamides; Z88.8 Allergy status to other drugs, medicaments and biological substances; Z91.048 Other nonmedicinal substance allergy status